=== PATIENT | male | born 1955 | race Caucasian/White ===

== ENCOUNTER 2024-03-17 06:15 | Inpatient (IN) | payer BC, SELFPAY ==
[2024-03-17] VITALS (16 sets, daily range): BP systolic 151–189; BP diastolic 89–118; PULSE 69–104; RESP 15–29; TEMP 36.4–36.6; O2SAT 4–97; BMI 40.6
--- NOTE | 2024-03-17 06:16 | EKG_ITS ---
[facility] Test Date: 2024-03-17 Pat Name: MARIAM ANTHONY Department: Room: - Gender: Male Vein Pumper: : 1955 Requested By: ED Temporary Provider Order Number: [id number] Reading MD: ED Temporary Provider Measurements Intervals [place] Rate: 79 P: NC: QRS: 4 QRSD: 117 T: 85 QT: 423 QTc: 486 Interpretive Statements ATRIAL FIBRILLATION MODERATE INTRAVENTRICULAR CONDUCTION DELAY [110+ ms QRS DURATION] NONSPECIFIC ST & T-WAVE ABNORMALITY ABNORMAL RHYTHM ECG No previous ECG available for comparison /store/S0/[id number].pdf
--- NOTE | 2024-03-17 06:29 | XR_ITS ---
Examination: PA lateral chest 2 views Technique: Upright PA lateral chest 2 views Exam date and time: March 17, 2024 at 0637 hrs. Comparison December 01, 2017 Indications: Chest pain today with hypoxia low O2 levels Findings: Mild to moderate CHF Moderate enlargement cardiac contour Prominent vascular congestion including central vascular engorgement Perihilar basilar edema Moderate osteopenia Impression: Mild to moderate CHF
--- NOTE | 2024-03-17 06:49 | PD.EDSOB ---
ED SOB =RME/HPI General Chief Complaint: Shortness of Breath/Dyspnea Stated Complaint: SHORTNESS OF BREATH Time Seen by Provider: 03/17/24 06:43 Arrival date/time: 03/17/24 06:15 RME / HPI RME / HPI Narrative: This section includes all my notes and documentations, including HPI, PE, MDM, Procedure Notes, and PLAN. Freddy Sol MD HPI: 68 year old male with history of hypertension, atrial fibrillation on Pradaxa presents to the ED for complaint of shortness of breath today. Reports he has been short of breath intermittently for ~ 1 year. However, noted shortness of breath worsening in the last few months. Aggravated with exertion and lying flat. This morning reports patient was unable to catch his breath and oxygen was at 79% via pulse oximeter, prompting ED visit. Patient denies fevers, chills, sweats, chest pain, cough, congestion, leg swelling, abdominal pain, n/v/d, or urinary symptoms. Denies any known history of COPD or asthma. No other complaints. ROS: Respiratory: negative except as documented in HPI. Gastrointestinal: negative except as documented in HPI. Skin: negative except as documented in HPI. Neurological: negative except as documented in HPI. Physical Exam: General: Alert and oriented. No acute distress when remaining still. Eyes: Conjunctivae and lids clear. ENT: No nasal congestion. Neck: Supple. No JVD. Heart: RRR. Lungs: No respiratory distress. Moderately diminished breath sounds bilaterally with wheezing and rales. Abdomen: Soft and nontender. Legs: No clubbing, cyanosis, edema. Skin: Warm and dry. Neuro: Alert and oriented X 3. I reviewed all diagnostic test results. My interpretation of the EKG is sinus rhythm with nonspecific ST-T changes. My interpretation of the chest x-ray is increased vascular congestion. My review of the chest CT report is CHF. Blood tests and urine tests remarkable for elevated BNP. ABG showed pH 7.41, pCO2 49, pHCO3 31. At this point, diagnoses include acute respiratory failure with hypoxia and new onset CHF. Treatment here included Solu-Medrol and neb treatment and Lasix and topical NTG and morphine. No significant improvement noted subjectively and objectively. I discussed the case with our hospitalist. About the presentation and exam and diagnostics and treatments here. And need of further care in the hospital. Will accept the patient. Related Data Home Medications ?Medication ?Instructions ?Recorded ?Confirmed amlodipine 10 mg tablet 10 mg PO DAILY 11/27/17 03/17/24 clonidine HCl 0.1 mg tablet 0.1 mg PO TID 11/27/17 03/17/24 dabigatran etexilate 150 mg 150 mg PO BID 11/27/17 03/17/24 capsule (Pradaxa) hydrochlorothiazide 12.5 mg tablet 12.5 mg PO QAM 11/27/17 03/17/24 meloxicam 15 mg tablet 15 mg PO DAILY 11/27/17 03/17/24 metoprolol succinate 100 mg 100 mg PO DAILY 11/27/17 03/17/24 tablet,extended release 24 hr pantoprazole 40 mg tablet,delayed 40 mg PO DAILY 11/27/17 03/17/24 release potassium chloride 10 mEq 20 meq PO DAILY UD 11/27/17 03/17/24 tablet,extended release finasteride 5 mg tablet 1 tab PO QDAY 10/22/21 03/17/24 tamsulosin 0.4 mg capsule 1 cap PO DAILY 10/22/21 03/17/24 quinapril 40 mg tablet 40 mg PO DAILY 03/17/24 03/17/24 Allergies Allergy/AdvReac Type Severity Reaction Status Date / Time No Known Allergies Allergy Verified 03/17/24 06:17 Review of Systems Review of Systems Systems Reviewed: All systems reviewed, normal except as documented Past Medical History Past Medical History CARDIAC: Positive Cardiac Disorders (PT STATES, IRREGULAR HEART BEAT ), Atrial Fibrillation and Hypertension GASTROINTESTINAL: Positive Obesity GENITOURINARY: Positive Genitourinary Disorders (Patient states he has a UTI in the past. No history of kidney stones. No history of dialysis. 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 Quality Measures none Orders Category Date Time Status Bedside COVID-19 Antigen Test NOW Care 03/17/24 06:52 Active Bedside Influenza A&B Antigen Test NOW Care 03/17/24 06:52 Completed COVID-19 Screening Questionnaire NOW Care 03/17/24 09:[address] Screening NOW Care 03/17/24 06:53 Active Leveler NOW Care 03/17/24 06:29 Active Decision to Admit X1 Care 03/17/24 09:14 Completed EKG (ED ONLY) *Do not use* NOW Care 03/17/24 06:16 Completed Insert NG / OG tube NOW Care 03/17/24 06:[address] angio chest Stat Exams 03/17/24 06:53 Completed EKG (ED Only) Stat Exams 03/17/24 06:16 Draft XR chest 2V Stat Exams 03/17/24 06:29 Completed ABG [Arterial Blood Gas] Stat Lab 03/17/24 07:42 Completed B-Type Natriuretic Peptide Stat Lab 03/17/24 07:06 Completed CBC Stat Lab 03/17/24 07:06 Completed Comprehensive Metabolic Panel Stat Lab 03/17/24 07:06 Completed D-Dimer Stat Lab 03/17/24 07:06 Completed Magnesium Stat Lab 03/17/24 07:06 Completed Partial Thromboplastin Time Stat Lab 03/17/24 07:06 Completed Prothrombin Time with INR Stat Lab 03/17/24 07:06 Completed Troponin I Stat Lab 03/17/24 07:06 Completed Albuterol/Ipratr Rt [place] [Duoneb Rt [place]] Med 03/17/24 06:50 Discontinued 3 ml INH X1 ONE Furosemide Inj [Lasix Inj] Med 03/17/24 07:20 Discontinued 20 mg IVP X1 ONE Magnesium Sulfate 2 GM Ivpb [Magnesium Sulfate Ivpb] Med 03/17/24 07:54 Discontinued 2 gm in 50 ml IV X1 MethylPREDNISolone.* [SoluMEDROL Inj] Med 03/17/24 06:50 Discontinued 125 mg IVP X1 ONE Morphine Inj Med 03/17/24 07:20 Discontinued 2 mg IVP X1 ONE Nitroglycerin Oint 2% [Nitro-paste Oint 2%] Med 03/17/24 07:20 Discontinued 1 inch TOP X1 ONE Reevaluation(s) Reevaluation #1: We reviewed all the results, analysis, and treatment plans. Patient is amenable to admission. Time: 09:14 Vital Signs Vital signs: Vital Signs Temperature 97.7 F 03/17/24 06:23 Pulse Rate 78 03/17/24 06:23 Respiratory Rate 19 03/17/24 06:23 Blood Pressure 176/99 H 03/17/24 06:23 Pulse Oximetry (%) 89 L 03/17/24 06:23 Oxygen Delivery Method Room Air 03/17/24 06:23 Pulse ox is 89% on room air which is hypoxic. Shortness of Breath / Dyspnea MDM Narrative MDM Narrative:: Connie Botello am scribing for and in the presence of Dr. Sol. Patient data External records reviewed:: [facility] previous records (I reviewed admission from 11/27/2017 through 12/02/2017 ) Clinical information provided by:: patient and spouse (, adds to hpi) Social determinants that could affect healthcare access:: none Patient has the following chronic illnesses:: Hypertension, atrial fibrillation How is presenting disease/condition affected by chronic disease/condition?: exacerbated by Evaluation data The following diagnostics were reviewed and interpreted by me:: lab results, radiology exam(s) and EKG tracing(s) (My interpretation of the EKG is: Atrial fibrillation (79 bpm) with nonspecific ST-T changes. Freddy Sol MD) Lab and/or radiology exams considered but not ordered:: None Interpretation Summary: Ordering Physician: Cheyenne LUJAN)Billy NP Date of Service: 03/17/24 Procedure(s): XR chest 2V Accession Number(s): [id number] cc: Cheyenne LUJAN),Billy URIBE; Rashad Marroquin MD~ Examination: PA lateral chest 2 views Technique: Upright PA lateral chest 2 views Exam date and time: March 17, 2024 at 0637 hrs. Comparison December 01, 2017 Indications: Chest pain today with hypoxia low O2 levels Findings: Mild to moderate CHF Moderate enlargement cardiac contour Prominent vascular congestion including central vascular engorgement Perihilar basilar edema Moderate osteopenia Impression: Mild to moderate CHF Dictated By: Rashad Marroquin MD Signed By: <Electronically signed by Rashad Marroquin MD in OV> 03/17/24 0647 Ordering Physician: Freddy Sol MD Date of Service: 03/17/24 Procedure(s): CT angio chest Accession Number(s): [id number] cc: JEANNETTE BRADY; Freddy Sol MD; Rashad Marroquin MD~ Examination: CTA chest with intravenous contrast 2-D reconstructions 3-D reconstructions, vascular Date and time of exam: March 17, 2024 0813 hours INDICATIONS: Onset shortness of breath chest pain hypoxia today CTDI: vol (mGy) 48.5 DLP: (mGycm) 630 Technique: Multiple axial sections of the thorax have been obtained. 3 mm slice thickness, from below the hemidiaphragms to above the apices of the lungs. Mediastinal and lung density settings have been obtained. 2-D sagittal and coronal reconstructions. 3-D angiographic renderings, 3-D volume renderings, 3D post processing, vascular maximum intensity projections obtained. Contrast administered is 100 cc Isovue-370 intravenous. Low dose protocols were performed. One or more of the following dose reduction techniques were used; automated exposure control, adjustment of the mA and/or KV according to patient size, use of iterative reconstruction technique. Findings: Numerous small high periaortic tracheobronchial and aortopulmonary window lymph nodes Thoracic aorta is not opacified No pulmonary artery emboli are visualized Moderate enlargement cardiac contour Prominent vascular congestion Perihilar and basilar septal edema with small bilateral pleural effusions Small anterior right lobe liver cyst, 15 mm IMPRESSION: Negative for pulmonary artery emboli Mild CHF Dictated By: Rashad Marroquin MD Signed By: <Electronically signed by Rashad Marroquin MD in OV> 03/17/24 0858 Medications / Prescriptions Medications or Prescriptions considered but not ordered:: None Medication administrations:: Medication Administration History Acetaminophen (Acetaminophen 325 Mg Tablet) 650 mg PO Q6H PRN PRN Reason: Fever >101.5 or pain 1-3 Stop: 04/16/24 11:17 Albuterol/Ipratropium (Albuterol/Ipratropium (Duoneb) Rt [place] 3 Ml Nebu) 3 ml INH Q6HRRT PRN PRN Reason: shortness of breath Stop: 04/16/24 12:59 Last Admin: 03/17/24 13:09 Dose: 3 ml Documented By: HIRAM Apixaban (Apixaban 2.5 Mg Tablet) 5 mg PO BID [facility] Stop: 04/17/24 08:59 Last Admin: 03/18/24 09:29 Dose: 5 mg Documented By: ALLEGRA Finasteride (Finasteride 5 Mg Tablet) 5 mg PO QDAY [facility] Stop: 04/17/24 08:59 Last Admin: 03/18/24 09:29 Dose: 5 mg Documented By: ALLEGRA Furosemide (Furosemide Inj 10 Mg/Ml 4ml Vial) 40 mg IVP BIDD [facility] Stop: 04/16/24 17:59 Last Admin: 03/18/24 05:16 Dose: 40 mg Documented By: Admin: 03/17/24 17:53 Dose: 40 mg Documented By: CARROL Hydralazine HCl (Hydralazine Hcl 10 Mg Tablet) 10 mg PO Q6HR PRN PRN Reason: SBP>160 Stop: 04/17/24 16:55 Magnesium Hydroxide (Milk Of Magnesia Susp 30 Ml Udc) 30 ml PO QDAY PRN; Protocol PRN Reason: CONSTIPATION Stop: 04/16/24 11:17 Metoprolol Succinate (Metoprolol Succinate Xl 25 Mg Tabcr) 100 mg PO BID [facility] Stop: 04/17/24 20:59 Ondansetron HCl (Ondansetron Inj 2 Mg/Ml Inj 2 Ml) 4 mg IV Q6H PRN; Protocol PRN Reason: NAUSEA OR VOMITING Stop: 04/16/24 11:17 Oxycodone/Acetaminophen (Oxycodone/Apap 5/325 Tablet) 1 tab PO Q6H PRN PRN Reason: PAIN SCALE 4-6 (Moderate Stop: 03/22/24 11:17 Pantoprazole Sodium (Pantoprazole Inj 40 Mg Vial) 40 mg IVP QDAY [facility] Stop: 04/17/24 08:59 Last Admin: 03/18/24 09:29 Dose: 40 mg Documented By: ALLEGRA Tamsulosin HCl (Tamsulosin Hcl 0.4 Mg Capsule) 0.4 mg PO QDAY [facility] Stop: 04/17/24 08:59 Last Admin: 03/18/24 09:29 Dose: 0.4 mg Documented By: ALLEGRA Valsartan (Valsartan 80 Mg Tablet) 320 mg PO QDAY [facility] Stop: 04/17/24 08:59 Last Admin: 03/18/24 09:27 Dose: 320 mg Documented By: GE Discontinued Medications Albuterol/Ipratropium (Albuterol/Ipratropium (Duoneb) Rt [place] 3 Ml Nebu) 3 ml INH X1 ONE Stop: 03/17/24 06:51 Last Admin: 03/17/24 07:31 Dose: 3 ml Documented By: HIRAM Furosemide (Furosemide Inj 10 Mg/Ml 4ml Vial) 20 mg IVP X1 ONE Stop: 03/17/24 07:21 Last Admin: 03/17/24 07:33 Dose: 20 mg Documented By: AM Magnesium Sulfate (Magnesium Sulfate Ivpb) 2 gm in 50 mls @ 25 mls/hr IV X1 ONE Stop: 03/17/24 09:53 Last Infusion: 03/17/24 20:44 Dose: Infused Documented By: Admin: 03/17/24 08:11 Dose: 25 mls/hr Documented By: AM Magnesium Sulfate (Magnesium Sulfate Ivpb) 4 gm in 50 mls @ 12.5 mls/hr IV X1 ONE Stop: 03/17/24 15:27 Last Infusion: 03/17/24 20:45 Dose: Infused Documented By: Admin: 03/17/24 13:32 Dose: 12.5 mls/hr Documented By: AM Methylprednisolone Sodium Succinate (Methylprednisolone Sod Succ 62.5 Mg/Ml 2ml Vial) 125 mg IVP X1 ONE Stop: 03/17/24 06:51 Last Admin: 03/17/24 07:20 Dose: 125 mg Documented By: AM Metoprolol Succinate (Metoprolol Succinate Xl 25 Mg Tabcr) 100 mg PO QDAY JIM Stop: 04/17/24 08:59 Last Admin: 03/18/24 09:28 Dose: 100 mg Documented By: ALLEGRA Morphine Sulfate (Morphine Sulf Inj 10 Mg/Ml Vial) 2 mg IVP X1 ONE Stop: 03/17/24 07:21 Last Admin: 03/17/24 07:33 Dose: 2 mg Documented By: AM Nitroglycerin (Nitroglycerin Oint 2% 1 Inch Packet) 1 inch TOP X1 ONE Stop: 03/17/24 07:21 Last Admin: 03/17/24 07:33 Dose: 1 inch Documented By: AM Home Medication- Please Speak With Patient Caregiver To Have Rx Brought To [facility] 150 mg PO BID JIM Stop: 04/16/24 20:59 Last Admin: 03/17/24 20:32 Dose: Not Given Documented By: SA Non-Admin Reason: Medication Not Available Potassium Chloride (Potassium Chloride 20 Meq Tabcr) 40 meq PO X1 ONE Stop: 03/17/24 11:28 Last Admin: 03/17/24 11:55 Dose: 40 meq Documented By: AM Potassium Chloride (Potassium Chloride 20 Meq Tabcr) 40 meq PO X1 ONE Stop: 03/18/24 07:58 Last Admin: 03/18/24 09:26 Dose: 40 meq Documented By: GE Valsartan (Valsartan 80 Mg Tablet) 320 mg PO X1 ONE Stop: 03/17/24 16:47 Last Admin: 03/17/24 18:30 Dose: 320 mg Documented By: AM See above Consultations Consultation(s) initiated? (list below): Yes Consultation #1 (Physician, Specialty, Details): I spoke with resident Dr. Nayak working with Dr. Arevalo. Discussed patients PMHx, HPI, ED course, exam findings, labs, and radiology results. The hospitalist agree to accept the patient for admission. Time: 09:13 Diagnosis Shortness of Breath Differential Diagnosis: acute exacerbation of chronic obstructive airways disease, congestive heart failure, community acquired pneumonia and pulmonary embolism Most likely diagnosis given after review of the tests above:: New onset CHF Admission Indicated Admission indicated?: indicated Admission Request Was there a request for admission?: Yes Admission Attestation Admission request attestation: Discussed case with [] from Hospitalist service regarding admission. Discussed patients ED course, exam findings, labs, and radiology results. The Hospitalist [agrees,declines] to accept the patient for admission. Disposition Plan Disposition Plan: Admit Discharge Plan Plan Patient Disposition: Admit Acute Care w/in Hospital Problem List Clinical Impression: Acute respiratory failure with hypoxia, New onset of congestive heart failure
--- NOTE | 2024-03-17 06:53 | XR_ITS ---
Examination: CTA chest with intravenous contrast 2-D reconstructions 3-D reconstructions, vascular Date and time of exam: March 17, 2024 0813 hours INDICATIONS: Onset shortness of breath chest pain hypoxia today CTDI: vol (mGy) 48.5 DLP: (mGycm) 630 Technique: Multiple axial sections of the thorax have been obtained. 3 mm slice thickness, from below the hemidiaphragms to above the apices of the lungs. Mediastinal and lung density settings have been obtained. 2-D sagittal and coronal reconstructions. 3-D angiographic renderings, 3-D volume renderings, 3D post processing, vascular maximum intensity projections obtained. Contrast administered is 100 cc Isovue-370 intravenous. Low dose protocols were performed. One or more of the following dose reduction techniques were used; automated exposure control, adjustment of the mA and/or KV according to patient size, use of iterative reconstruction technique. Findings: Numerous small high periaortic tracheobronchial and aortopulmonary window lymph nodes Thoracic aorta is not opacified No pulmonary artery emboli are visualized Moderate enlargement cardiac contour Prominent vascular congestion Perihilar and basilar septal edema with small bilateral pleural effusions Small anterior right lobe liver cyst, 15 mm IMPRESSION: Negative for pulmonary artery emboli Mild CHF
[2024-03-17] MEDS: MethylPREDNISolone SOD SUCC 62.5 MG/ML 2ML VIAL 125 MG IVP (07:20)
[2024-03-17 07:21] LABS: Basophils # (Auto) 0.1 Thou/mm3 (0.0-0.2); Basophils % (Auto) 1 % (0-2.5); Eosinophils # (Auto) 1.2 Thou/mm3 (0.0-0.5); Eosinophils % (Auto) 11 % (0-10); Hematocrit 36.3 % (41.0-53.0); Hemoglobin 11.9 g/dL (13.5-16.0); Immature Granulocytes % (Auto) 0 % (0-0); Immature Granulocytes Auto 0.03 Thou/mm3 (0.00-0.00); Lymphocytes # (Auto) 1.4 Thou/mm3 (1.0-4.8); Lymphocytes % (Auto) 12 % (10-50); Mean Corpuscular HGB Conc 32.8 g/dl (31.0-37.0); Mean Corpuscular Hemoglobin 26.7 pg (25.0-35.0); Mean Corpuscular Volume 81 fL (80-100); Monocytes # (Auto) 1.1 Thou/mm3 (0.0-0.8); Monocytes % (Auto) 10 % (0-12); Neutrophils # (Auto) 7.5 Thou/mm3 (1.8-7.7); Neutrophils % (Auto) 66 % (37-80); Nucleated Red Blood Cell % 0 /100 WBC (0); Platelet Count 211 Thou/mm3 (140-440); RDW Standard Deviation 45.9 fL (35.1-43.9); Red Blood Count 4.46 Miln/mm3 (4.50-5.90); White Blood Count 11.4 Thou/mm3 (3.8-10.6)
[2024-03-17] MEDS: ALBUTEROL/IPRATROPIUM (Duoneb) RT SOL 3 ML NEBU INH ×2 (07:31→13:09)
[2024-03-17] MEDS: NITROGLYCERIN OINT 2% 1 INCH PACKET TOP (07:33)
[2024-03-17] MEDS: MORPHINE SULF INJ 10 MG/ML VIAL 2 MG IVP (07:33)
[2024-03-17] MEDS: FUROSEMIDE INJ 10 MG/ML 4ML VIAL 20 MG IVP (07:33)
[2024-03-17 07:34] LABS: INR 1.3 (0.9-1.3); Partial Thromboplastin Time 40.2 Seconds (22.0-36.0); Prothrombin Time 13.6 Seconds (9.0-12.2)
[2024-03-17 07:37] LABS: B-Type Natriuretic Peptide 184 pg/mL (0-100)
[2024-03-17 07:38] LABS: Alanine Aminotransferase 14 U/L (10-49); Albumin, Serum 4.1 gm/dL (3.4-4.8); Albumin/Globulin Ratio 1.7 (1.2-2.2); Alkaline Phosphatase 78 U/L (46-116); Anion Gap 3 (7-16); Aspartate Amino Transferase 14 U/L (0-34); BUN/Creatinine Ratio 15 Ratio (12-20); Bilirubin,Total 2.3 mg/dL (0.3-1.2); Blood Urea Nitrogen 12 mg/dL (9-23); Calcium 9.3 mg/dL (8.3-10.6); Calcium (Corrected) 9.3 mg/dL (8.5-10.1); Carbon Dioxide 30.9 mMol/L (20.0-31.0); Chloride 102 mMol/L (98-107); Creatinine (Component) 0.8 mg/dL (0.6-1.3); Globulin 2.4 gm/dL (2.3-3.5); Glucose 130 mg/dL (74-106); Magnesium 1.5 mg/dL (1.6-2.6); Osmolality,Calculated 273 (275-295); Potassium 3.9 mMol/L (3.4-5.1); Sodium 136 mMol/L (136-145); Total Protein 6.5 gm/dL (5.7-8.2); Troponin I < 0.020 ng/mL (0.0-0.045); eGFR > 60 See Note
[2024-03-17 07:45] LABS: Base Excess 6 (-3-3); HCO3 31 mEq/L (20-26); Inspired O2, VO2 Liters 1 L/min; O2 Saturation 95 % (91-98); PCO2 49 mmHg (32.0-48.0); PO2 70 mmHg (83-108); pH, Arterial 7.41 (7.35-7.45)
[2024-03-17 07:51] LABS: Allen Test Not Performed; Puncture Site Right Radial
[2024-03-17 07:54] LABS: D-Dimer < 250 ng/mL (<600)
[2024-03-17] MEDS: Magnesium Sulfate 2 GM Ivpb 2 GM/50 ML BAG IV (08:11)
--- NOTE | 2024-03-17 10:57 | PC.CC ---
Patient is a 68 year-old, male who presents to the hospital for SOB. Barbara HENSON met with the patient face to face. ASW introduced self, role, and reason for visit. Patient presented alert and oriented to self, location, and situation. At bedside was patients Twila Ruth who patient provided consent to remain in the room with the patient. Patient was pleasant and engaged in assessment. Patient confirmed information on the demographics and lives at home with his . Prior to being hospitalized patient was able to complete own ADLs and Ambulate Independently. Patient reports the nasal oxygen is new for him and he has never used oxygen. Patient's primary care doctor is Dr. Cifuentes. Patient uses [facility] [address] in [place], [place]. Upon discharge patient plans on returning home. consulting services project manager to follow-up with any discharge needs.
--- NOTE | 2024-03-17 11:23 | ECHO_ITS ---
Transthoracic Echo Report Ht (in): 72 Wt (lb): 300 Exam Location: Portable Status: Emergency Bin Piler: Padmini Schroeder Indications: Procedure Performed: BP: 159 / 89 HR: 98 Rhythm: Atrial fibrillation Technical Quality: Technically difficult study MEASUREMENTS (Male / Female) Normal Values 2D ECHO LV Diastolic Diameter PLAX 5.9 cm 4.2 - 5.9 / 3.9 - 5.3 cm LV Systolic Diameter PLAX 4.1 cm IVS Diastolic Thickness 1.2 cm 0.6 - 1.0 / 0.6 - 0.9 cm LVPW Diastolic Thickness 1.2 cm 0.6 - 1.0 / 0.6 - 0.9 cm LV Relative Wall Thickness 0.4 LVOT Diameter 2.1 cm LA Volume Index 90.7 cm?/m? 16 - 28 cm?/m? Ascending Aorta Diameter 3.6 cm M-MODE Aortic Root Diameter MM 3.4 cm LA Systolic Diameter MM 5.7 cm LA Ao Ratio MM 1.7 AV Cusp Separation MM 2.4 cm DOPPLER LVOT Peak Velocity 83.5 cm/s LVOT Peak Gradient 2.8 mmHg LVOT Velocity Time Integral 16.6 cm LVOT Cardiac Index 2090.8 cm?/min?m? MV Peak Velocity 156.0 cm/s MV Peak Gradient 9.7 mmHg MV Mean Velocity 80.7 cm/s MV Mean Gradient 4.0 mmHg MV Area PHT 4.4 cm? Mitral E Point Velocity 93.1 cm/s Mitral A Point Velocity 1.9 cm/s Mitral E to A Ratio 48.0 LV E' Lateral Velocity 13.2 cm/s Mitral E to LV E' Lateral Ratio 7.1 LV E' Septal Velocity 11.0 cm/s Mitral E to LV E' Septal Ratio 8.5 FINDINGS Left Ventricle Normal left ventricular size, systolic function with no obvious regional wall motion abnormalities. Mild LVH. The ejection fraction is visually estimated at 55-60%. Right Ventricle The right ventricle is mildly dilated. Normal systolic function. Left Atrium The left atrium is severely dilated. Right Atrium The right atrium is severely dilated. Atrial Septum The interatrial septum appears normal with no evidence of a shunt. Aorta The aorta is normal by two-dimensional, color flow and Doppler interrogation. Mitral Valve The mitral valve is normal by two-dimensional, color flow and Doppler interrogation. There is mild m itral valve regurgitation. Aortic Valve The aortic valve is trileaflet and normal by two-dimensional, color flow and Doppler interrogation. There is no significant aortic valve regurgitation. Tricuspid Valve The tricuspid valve is normal by two-dimensional, color flow and Doppler interrogation. There is tra ce tricuspid valve regurgitation. Pulmonic Valve There is no significant pulmonic valve regurgitation. Vessels The pulmonary artery appears normal. The inferior vena cava pulmonary and hepatic veins appear dilat ed. Pericardium The pericardium is normal by two-dimensional imaging. There is no significant pericardial effusion. CONCLUSIONS Indication: CHF Normal LV size and function. Mild LVH. Cannot determine diatolic function due to AFib. Estimated EF 55- 60% Mild RV dilation. Normal RV function. Severe biatrial dilation. IVC dilated. Mild MR. Trace TR. John Bella (Electronically Signed) Final Date: 18 March 2024 12:58
[2024-03-17] MEDS: POTASSIUM CHLORIDE 20 mEq TABCR 40 MEQ PO (11:55)
[2024-03-17] MEDS: Magnesium Sulfate 4 GM Ivpb 4 GM/50 ML BAG IV (13:32)
--- NOTE | 2024-03-17 15:40 | ESCONSULT_ITS ---
HPI Data of Consult Patient: new to practice Consult date: 03/17/24 Requesting Physician: Nancy Arevalo DO Admitting Provider: Nancy Arevalo DO Attending Provider: Nancy Arevalo DO Primary Care Provider: Antwan Cifuentes MD Consult Narrative Reason for consult: SOB, Afib with RVR History of present illness: HISTORY OF PRESENT ILLNESS : Patient is a 68-year-old male with a past medical history significant for essential hypertension, longstanding A-fib anticoagulated on Pradaxa and rate controlled on metoprolol XL, vertigo, BPH, history of right hip and left knee replacement at [facility] and lumbosacral laminectomy. Follows up with [facility] Dr. Murphy in [place] and nursing program chair, Dr. Cifuentes. Presented to the ED today with a chief complaint of shortness of breath. Patient states that for the past year he has constant shortness of breath but has been delaying coming to the hospital because it was very [place] farm. 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 Patient states that his SOB is constant and if he walks for less than half a block he has to stop to catch his breath. Patient's also endorses lower extremity swelling which has gotten worse over the past couple weeks.. He also has a 2 pillow orthopnea and PND. Patient denies any chest pain/pressure and palpitations. Also denies any presyncope/syncope, leg cramps and claudication. Patient also endorses nocturia having to wake up 5 times at night to urinate. He also gets lightheaded upon waking up every morning and this is exacerbated by bending over or getting up quickly. Patient follows up with [facility] Dr. Murphy in [place] and has regular visits every 6 months with stress test every 2 years. His last heart catheterization was approximately 7 years ago which patient states was normal. Patient was offered the option of KIERSTEN with electrical cardioversion for his longstanding A-fib. Both he and his were extensively counseled and advised by Dr. Bella, however they decline at this time. Patient also endorses that his hypertension has been uncontrolled for many years and he regularly checks his blood pressure at home with his SBP is being in the 150s?160s usually. ED course: In the ED, patient was noted to be hypoxic still, saturating 89% on room air, hypertensive. EKG showed atrial fibrillation with a rate of 79. Chest x-ray showed some vascular congestion consistent with mild to moderate CHF and CTA was negative for pulmonary embolism. The patient was placed on 2 L of oxygen and saturation improved Labs showed WBC 11.4 Hgb 11.9 PLT 211. ABG showed pCO2 49. NA 130 6K3.9 CL 107 bicarb 30.9 BUN 12 CR 0.8 glucose 130 mag 1.5 and T. bili 2.3. Last transthoracic echocardiogram completed on 12/01/[address] Goss findings include: A complete two-dimensional, color flow and Doppler transthoracic echocardiogram is performed. Dilated cardiomyopathy ejection fraction is 45- 50%. Mild mitral and tricuspid regurgitation Moderate LVH. The patient has been admitted for management of acute hypoxic respiratory failure secondary to CHF exacerbation. Cardiology was consulted. HOME MEDICATIONS: ? HCTZ 12.5 mg p.o. daily ? Meloxicam 15 Mg p.o. daily ? Quinapril 40 Mg p.o. daily ? Amlodipine 10 Mg p.o. daily ? KCl 10 Mg p.o. twice daily ? Metoprolol XL 100 Mg p.o. daily ? Clonidine 0.4 Mg p.o. daily ? Pantoprazole 40 Mg p.o. daily ? Pradaxa 150 Mg p.o. twice daily ? Tamsulosin 0.4 mg p.o. every morning ? Finasteride 5 Mg p.o. daily Is a 17-year-old male with a past medical history of longstanding atrial fibrillation cc:: cc: Nancy Arevalo, Past Medical History Past Medical History Comments PMH COMMENT: Past medical history: ? Essential hypertension ? Longstanding A-fib ? Vertigo ? BPH ? Morbid obesity class III Past surgical history: - Right Hip replacement and Left knee replacement both at [facility] - Lumbosacral Laminectomy Allergies: NKFDA Social history: Occupational History: Works as a sanchez on [employer] Marital Status: with 3 kids. Lives alone [place] Tobacco use: Denies ETHO use: 1 glass of wine per day Illicit drug use: Denies Social History Note: lives with Family History: Grandfather RI in his 50s Exam Vital Signs Temp Pulse Resp BP Pulse Ox O2 Del Method O2 Flow Rate 97.7 F 98 16 151/89 H 96 Nasal Cannula 4 03/17/24 11:37 03/17/24 13:10 03/17/24 13:10 03/17/24 11:37 03/17/24 13:10 03/17/24 11:37 03/17/24 13:10 Narrative Exam Constitutional Alert, oriented x 3 and comfortable. ELderly Obese male HEENT Vision grossly intact. Patent nares. Trachea midline Respiratory Chest normal on inspection and clear auscultation bilaterally Cardiovascular S1 and S2 audible,irregularly, irregular rate. No murmurs carotid bruit. JVD not assessed Abdominal Soft,obese and non tender to palpation in all quadrants. BS + Genitourinary No bladder tenderness, no flank pain. Normal to palpation. No scrotal edema Musculoskeletal Extremities tone within normal limits. 3 + LE edema B/L, 2+ hip edema Neurological CN II - XII grossly intact. Extremity motor and sensation grossly intact. Skin Warm, dry and intact. No apparent lesions. Psychiatric Patient has good affect, is cooperative Results Labs 03/17/24 07:06 03/17/24 07:06 Labs: Short CBC 03/17/24 Range/Units 07:06 WBC 11.4 H (3.8-10.6) Thou/mm3 Hgb 11.9 L (13.5-16.0) g/dL Hct 36.3 L (41.0-53.0) % Plt Count 211 (140-440) Thou/mm3 BMP 03/17/24 07:06 Sodium 136 Potassium 3.9 Chloride 102 Carbon Dioxide 30.9 BUN 12 Creatinine 0.8 Glucose 130 H Calcium 9.3 Cardiac Enzymes 03/17/24 Range/Units 07:06 Troponin I < 0.020 (0.0-0.045) ng/mL Liver Function 03/17/24 Range/Units 07:06 Total Bilirubin 2.3 H (0.3-1.2) mg/dL AST 14 (0-34) U/L ALT 14 (10-49) U/L Alkaline Phosphatase 78 (46-116) U/L Albumin 4.1 (3.4-4.8) gm/dL ABG Interpretation ABG results: 03/17/24 07:42 ABG pH 7.41 ABG pCO2 49 H ABG pO2 70 L ABG HCO3 31 H ABG O2 Saturation 95 ABG Base Excess 6 H Quality Measures Quality Measures none Advance care planning discussed with:: patient Medications Home Medications and Allergies Home Medications ?Medication ?Instructions ?Recorded ?Confirmed ?Type amlodipine 10 mg tablet 10 mg PO DAILY 11/27/17 03/17/24 History clonidine HCl 0.1 mg tablet 0.1 mg PO TID 11/27/17 03/17/24 History dabigatran etexilate 150 mg 150 mg PO BID 11/27/17 03/17/24 History capsule (Pradaxa) hydrochlorothiazide 12.5 mg tablet 12.5 mg PO QAM 11/27/17 03/17/24 History meloxicam 15 mg tablet 15 mg PO DAILY 11/27/17 03/17/24 History metoprolol succinate 100 mg 100 mg PO DAILY 11/27/17 03/17/24 History tablet,extended release 24 hr pantoprazole 40 mg tablet,delayed 40 mg PO DAILY 11/27/17 03/17/24 History release potassium chloride 10 mEq 20 meq PO DAILY UD 11/27/17 03/17/24 History tablet,extended release finasteride 5 mg tablet 1 tab PO QDAY 10/22/21 03/17/24 History tamsulosin 0.4 mg capsule 1 cap PO DAILY 10/22/21 03/17/24 History quinapril 40 mg tablet 40 mg PO DAILY 03/17/24 03/17/24 History Allergies Allergy/AdvReac Type Severity Reaction Status Date / Time No Known Allergies Allergy Verified 03/17/24 06:17 Visit Medications Acetaminophen (Acetaminophen 325 Mg Tablet) 650 mg PO Q6H PRN PRN Reason: Fever >101.5 or pain 1-3 Stop: 04/16/24 11:17 Albuterol/Ipratropium (Albuterol/Ipratropium (Duoneb) Rt [place] 3 Ml Nebu) 3 ml INH Q6HRRT PRN PRN Reason: shortness of breath Stop: 04/16/24 12:59 Last Admin: 03/17/24 13:09 Dose: 3 ml Finasteride (Finasteride 5 Mg Tablet) 5 mg PO QDAY [facility] Stop: 04/17/24 08:59 Furosemide (Furosemide Inj 10 Mg/Ml 4ml Vial) 40 mg IVP BIDD JIM Stop: 04/16/24 17:59 Magnesium Hydroxide (Milk Of Magnesia Susp 30 Ml Udc) 30 ml PO QDAY PRN; Protocol PRN Reason: CONSTIPATION Stop: 04/16/24 11:17 Home Medication- Please Speak With Patient Caregiver To Have Rx Brought To [facility] 150 mg PO BID JIM Stop: 04/16/24 20:59 Ondansetron HCl (Ondansetron Inj 2 Mg/Ml Inj 2 Ml) 4 mg IV Q6H PRN; Protocol PRN Reason: NAUSEA OR VOMITING Stop: 04/16/24 11:17 Oxycodone/Acetaminophen (Oxycodone/Apap 5/325 Tablet) 1 tab PO Q6H PRN PRN Reason: PAIN SCALE 4-6 (Moderate Stop: 03/22/24 11:17 Pantoprazole Sodium (Pantoprazole Inj 40 Mg Vial) 40 mg IVP QDAY [facility] Stop: 04/17/24 08:59 Valsartan (Valsartan 80 Mg Tablet) 320 mg PO QDAY [facility] Stop: 04/17/24 08:59 Discontinued Medications Albuterol/Ipratropium (Albuterol/Ipratropium (Duoneb) Rt [place] 3 Ml Nebu) 3 ml INH X1 ONE Stop: 03/17/24 06:51 Last Admin: 03/17/24 07:31 Dose: 3 ml Furosemide (Furosemide Inj 10 Mg/Ml 4ml Vial) 20 mg IVP X1 ONE Stop: 03/17/24 07:21 Last Admin: 03/17/24 07:33 Dose: 20 mg Magnesium Sulfate (Magnesium Sulfate Ivpb) 2 gm in 50 mls @ 25 mls/hr IV X1 ONE Stop: 03/17/24 09:53 Last Admin: 03/17/24 08:11 Dose: 25 mls/hr Magnesium Sulfate (Magnesium Sulfate Ivpb) 4 gm in 50 mls @ 12.5 mls/hr IV X1 ONE Stop: 03/17/24 15:27 Last Admin: 03/17/24 13:32 Dose: 12.5 mls/hr Methylprednisolone Sodium Succinate (Methylprednisolone Sod Succ 62.5 Mg/Ml 2ml Vial) 125 mg IVP X1 ONE Stop: 03/17/24 06:51 Last Admin: 03/17/24 07:20 Dose: 125 mg Morphine Sulfate (Morphine Sulf Inj 10 Mg/Ml Vial) 2 mg IVP X1 ONE Stop: 03/17/24 07:21 Last Admin: 03/17/24 07:33 Dose: 2 mg Nitroglycerin (Nitroglycerin Oint 2% 1 Inch Packet) 1 inch TOP X1 ONE Stop: 03/17/24 07:21 Last Admin: 03/17/24 07:33 Dose: 1 inch Potassium Chloride (Potassium Chloride 20 Meq Tabcr) 40 meq PO X1 ONE Stop: 03/17/24 11:28 Last Admin: 03/17/24 11:55 Dose: 40 meq Assessment & Plan Plan Patient is a 68-year-old male with a past medical history significant for essential hypertension, longstanding A-fib anticoagulated on Pradaxa and rate controlled on metoprolol XL, vertigo, BPH, history of right hip and left knee replacement at [facility] and lumbosacral laminectomy. Follows up with [facility] Dr. Murphy in [place] and nursing program chair, Dr. Cifuentes. Presented to the ED today with a chief complaint of shortness of breath.The patient has been admitted for management of acute hypoxic respiratory failure secondary to CHF exacerbation. Cardiology was consulted. 1. Acute respiratory failure with hypoxia Secondary to 2. Acute decompensated chronic systolic heart failure exacerbation [EF 45-50%] 3. Dilated cardiomyopathy On admission patient was severely SOB and saturating 89% on room air, subsequently was placed on supplemental O2 via NC and saturations improved to 94%. On exam patient's lungs were clear to auscultation, however had significant lower extremity edema. BNP on admission was 184 less than his previous value of 346 in 2018. Troponin was also negative. EKG showed atrial fibrillation, rate [address] changes or Q waves. Chest x-ray showed bilateral vascular congestion and pulmonary edema bilaterally worse in the right lower lobe. Patient's home diuretic HCTZ 12.5 Mg p.o. daily NYHA Stage C Class IV Plan: ? Strict input output charting ? Fluid restrict 1500 cc/day ? Daily weights ? 2 g sodium restricted diet ? Recommend diuresis with furosemide 40 Mg IV twice daily ? Repeat transthoracic echocardiogram ordered ? Last lipid panel and TSH on file from 2018, recommend to repeat also HbA1c 4. Longstanding A-fib?rate controlled Patient has history of A-fib for many years rate controlled on metoprolol XL 100 mg p.o. daily and anticoagulated on Pradaxa 150 Mg p.o. twice daily. EKG on admission showed atrial fibrillation with a rate of [address] changes or Q waves. [id number]: 3 points; 3.2% stroke risk per year HAS-BLED: 2 points; moderate risk for major bleeding Both patient and his extensively counseled and advised by Dr. Bella about switching from Pradaxa to Eliquis due to lower risk of bleeding. Both patient and agree. Plan: ? Patient currently rate controlled, can resume/increase metoprolol XL later on as patient is currently in acute heart failure exacerbation. ?Recommend anticoagulation with Eliquis 5 Mg p.o. twice daily ? Maintain potassium greater than 4 and magnesium greater than 2 at all times to prevent any further arrhythmias 5. Essential hypertension ?uncontrolled Patient has hypertension for many years and his home medications quinapril 40 Mg p.o. daily, amlodipine 10 Mg p.o. daily, clonidine 0.4 Mg p.o. daily. SBP's at home range from 150s?160s Plan: ? Ideally patient should be on ROCKY/ARB or Entresto along with beta-tushar and spironolactone as part of GDMT. ?Recommend to start on ARB for now 6. Normocytic anemia On admission patient's Hb 11.9, uncertain of baseline as last documented labs from 2018. DDx: Anemia of chronic disease, iron deficiency, poor nutrition, gastric ulcer Recommend iron panel and complete anemia workup 7. BPH Patient's home medication tamsulosin 0.4 Mg p.o. daily and finasteride 5 Mg p.o. daily. Continue management as per primary team 8. Likely CLEM 9. Morbid obesity class III Patient's BMI 40.7 kg/m2 and patient's also reports that he snores. Recommend sleep study as outpatient to further evaluate Continue rest of management as per primary team. We are grateful to be able to participate in Mr. Ruth's care. Thank you for the consult Plan of care discussed with attending Reinforcing Steel Machine Operator, Dr Shayne Jaquez MD PGY 1 Attending Provider Attestation/Addendum I have personally seen and examined the patient separately on the above date of service and discussed the plan of care with the resident. I reviewed the resident Dr. Jaquez consultation progress note and agree with the resident findings and plan in the note above and have also edited the documentation to reflect my findings and plan. 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 Patient has been having worsening shortness of breath over the last couple of months which has been slowly worsening to the level where he is not able to lie down flat and uses couple of pillows for now. Patient, does not feel any palpitations and even when he is in atrial fibrillation and he never had any symptoms. Patient apparently has been following with Dr. Lindquist with [facility] in [place] for many years and as regular visits every 6 months and has stress test 2 years ago which was absolutely normal. Last cardiac catheterization 7 years ago which were normal. Patient denies any kind of chest pain or chest pressure at the present point of time. From the shortness of breath, palpitations as well as fatigue and unable to sleep well. In the emergency department patient blood pressure was elevated and at home was in the 1 50-1 60s millimeters mercury. Patient was hypoxic and was 89% on room air and at home was around 79% as per the . EKG showed atrial fibrillation with rate control. Hemoglobin is 11.9, platelets is 211 and WBC is 11.4. INR 1.3. Potassium 3.9, sodium 136 BUN 12 creatinine of 0.8, admission was 1.5, glucose of 130 BNP was elevated at 184 bilirubin is elevated at 1.4. No fever or chills. Chest x-ray showed bilateral vascular congestion with pulmonary edema picture even on the CT. 1. Acute hypoxic respiratory failure in setting of acute on chronic systolic versus diastolic congestive heart failure exacerbation: Recent EF not known for the patient and previously last echocardiogram showed an EF of around 45 to 50% 4 years ago. Will start the patient on IV Lasix 40 mg twice daily for now. Strict input output, daily weights and 2 g oriented. Neck Check echocardiogram to rule out regional wall motion abnormalities, LV function and RV function as well as diastolic function. Patient could have tachycardia induced cardiomyopathy as his heart rate appears to be uncontrolled as heart rate at rest is around 70 to 100 bpm point upon standing or with ambulation patient's heart rate is greater than 110 bpm. Return metoprolol XL 100 mg once daily which can be continued for now and can continue to uptitrate it based on the heart rate as well as blood pressure. Patient blood pressure is elevated on arrival if patient is systolic heart failure. Denies Entresto otherwise we will continue losartan for the patient and continue to monitor the renal function. Patient atrial fibrillation not well-controlled at the present moment. Patient has never been cardioverted as per the patient and the patient was never admitted for any RVR episodes and has been doing well since initial diagnosis. They did discuss cardioversion previously but never been high rate. Patient unsure if he is in atrial fibrillation during all the time or not. Continue Eliquis 5 mg twice daily for now. Magnesium is 1.5 recommend to give at least 6 A of magnesium sulfate IV and keep potassium greater than 4 and magnesium greater than 2.0 at all times. Management of rest of the medical conditions as per primary team. Thank for the consult and allowing me to participate in the care of the patient. Cardiology will continue to follow. John Bella MD Interventional cardiology
--- NOTE | 2024-03-17 17:05 | ESHP_ITS ---
<Statement entered by Betzy Sorto MD - 03/19/24 07:24> Senior Resident Attestation: I supervised/discussed management plan with resident physician Dr. Torres, and was involved in the care of this patient. I personally saw and examined the patient and discussed the assessment and plan with the entire medicine team, including my attending. I agree with the assessment and plan as documented. Patient's care was discussed with attending physician, Dr. Mickey Sorto MD PGY-3 Documentation for date of: 03/17/24 HPI History of Present Illness History of present illness: The patient is a 68-year-old male with a past medical history of hypertension and A-fib on Pradaxa who presented to the ED on 03/17/2024 with complaints of shortness of breath. Patient reports that he has been having symptoms intermittently for approximately a year but has worsened over the last few months and he is unable to complete his many steps as he is usually able to. He also reports exertional dyspnea and orthopnea. Per patient's who is at bedside, patient was unable to breathe and via pulse oximeter O2 sat was at 79% which brought him to the ER. Patient denied any chest pain, palpitations, fevers or leg swelling in the past and denies any history of COPD or asthma. ED course: In the ED, patient was noted to be hypoxic still, saturating 89% on room air, hypertensive. EKG showed atrial fibrillation with a rate of 79. Chest x-ray showed some vascular congestion consistent with mild to moderate CHF and CT was negative for pulmonary embolism. The patient was placed on 2 L of oxygen and saturation picked up. Labs showed WBC 11.4 Hgb 11.9 PLT 211. ABG showed pCO2 49. NA 130 6K3.9 CL 107 bicarb 30.9 BUN 12 CR 0.8 glucose 130 mag 1.5 and T. bili 2.3. The patient has been admitted for management of acute hypoxic respiratory failure secondary to CHF exacerbation. Review of Systems Review of Systems Narrative Review of Systems: GENERAL: Denies fevers/chills or diaphoresis. HEENT: Denies headache or visual/hearing changes. Denies nasal discharge. NEURO: Denies unusual weakness or difficulty speaking. CARDIO: Denies chest pain or palpitations. PULM: Admits shortness of breath and orthopnea GI: Denies abdominal pain, N/V/C/D/reflux/gas, bright red blood per rectum or melena. Reports having BMs. URO: Denies burning/itching/pain/urinary changes. MSK/EXT/SKIN: Denies joint/skeletal/muscle pain, issues/changes in upper or lower extremities, itchiness, or superficial pain. PSYCH: Cooperative, pleasant mood & affect. Exam Vital Signs Temp Pulse Resp BP Pulse Ox O2 Del Method O2 Flow Rate 97.7 F 89 18 189/102 H 94 L Room Air 4 03/17/24 16:21 03/17/24 16:21 03/17/24 16:21 03/17/24 16:21 03/17/24 16:21 03/17/24 16:21 03/17/24 13:10 Narrative Exam GENERAL: AAOX3 NEURO: MOTOR VEHICLES SUPERVISOR grossly intact, moves extremities x4 HEENT: Moist mucosa. Eyes open, symmetrical, & clear, nasal cannula in-situ CARDIO: No chest pain on palpation. Irregular rhythm, normal rate, no obvious murmurs PULM: No noted coughing/dyspnea. Crackles heard bilaterally GI: Abdomen soft, nondistended, no pain on palpation. 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 SKIN/MSK/EXT: Bilateral pitting edema 1+ Results: Labs 03/18/24 04:20 03/18/24 04:20 Labs: Short CBC 03/17/24 Range/Units 07:06 WBC 11.4 H (3.8-10.6) Thou/mm3 Hgb 11.9 L (13.5-16.0) g/dL Hct 36.3 L (41.0-53.0) % Plt Count 211 (140-440) Thou/mm3 BMP 03/17/24 07:06 Sodium 136 Potassium 3.9 Chloride 102 Carbon Dioxide 30.9 BUN 12 Creatinine 0.8 Glucose 130 H Calcium 9.3 Cardiac Enzymes 03/17/24 Range/Units 07:06 Troponin I < 0.020 (0.0-0.045) ng/mL Liver Function 03/17/24 Range/Units 07:06 Total Bilirubin 2.3 H (0.3-1.2) mg/dL AST 14 (0-34) U/L ALT 14 (10-49) U/L Alkaline Phosphatase 78 (46-116) U/L Albumin 4.1 (3.4-4.8) gm/dL ABG Interpretation ABG results: 03/17/24 07:42 ABG pH 7.41 ABG pCO2 49 H ABG pO2 70 L ABG HCO3 31 H ABG O2 Saturation 95 ABG Base Excess 6 H Quality Measures Quality Measures none Advance care planning discussed with:: patient and spouse Medications Home Medications and Allergies Home Medications ?Medication ?Instructions ?Recorded ?Confirmed ?Type amlodipine 10 mg tablet 10 mg PO DAILY 11/27/17 03/17/24 History clonidine HCl 0.1 mg tablet 0.1 mg PO TID 11/27/17 03/17/24 History dabigatran etexilate 150 mg 150 mg PO BID 11/27/17 03/17/24 History capsule (Pradaxa) hydrochlorothiazide 12.5 mg tablet 12.5 mg PO QAM 11/27/17 03/17/24 History meloxicam 15 mg tablet 15 mg PO DAILY 11/27/17 03/17/24 History metoprolol succinate 100 mg 100 mg PO DAILY 11/27/17 03/17/24 History tablet,extended release 24 hr pantoprazole 40 mg tablet,delayed 40 mg PO DAILY 11/27/17 03/17/24 History release potassium chloride 10 mEq 20 meq PO DAILY UD 11/27/17 03/17/24 History tablet,extended release finasteride 5 mg tablet 1 tab PO QDAY 10/22/21 03/17/24 History tamsulosin 0.4 mg capsule 1 cap PO DAILY 10/22/21 03/17/24 History quinapril 40 mg tablet 40 mg PO DAILY 03/17/24 03/17/24 History Allergies Allergy/AdvReac Type Severity Reaction Status Date / Time No Known Allergies Allergy Verified 03/17/24 06:17 Visit Medications Acetaminophen (Acetaminophen 325 Mg Tablet) 650 mg PO Q6H PRN PRN Reason: Fever >101.5 or pain 1-3 Stop: 04/16/24 11:17 Albuterol/Ipratropium (Albuterol/Ipratropium (Duoneb) Rt [place] 3 Ml Nebu) 3 ml INH Q6HRRT PRN PRN Reason: shortness of breath Stop: 04/16/24 12:59 Last Admin: 03/17/24 13:09 Dose: 3 ml Finasteride (Finasteride 5 Mg Tablet) 5 mg PO QDAY [facility] Stop: 04/17/24 08:59 Furosemide (Furosemide Inj 10 Mg/Ml 4ml Vial) 40 mg IVP BIDD [facility] Stop: 04/16/24 17:59 Magnesium Hydroxide (Milk Of Magnesia Susp 30 Ml Udc) 30 ml PO QDAY PRN; Protocol PRN Reason: CONSTIPATION Stop: 04/16/24 11:17 Home Medication- Please Speak With Patient Caregiver To Have Rx Brought To [facility] 150 mg PO BID [facility] Stop: 04/16/24 20:59 Ondansetron HCl (Ondansetron Inj 2 Mg/Ml Inj 2 Ml) 4 mg IV Q6H PRN; Protocol PRN Reason: NAUSEA OR VOMITING Stop: 04/16/24 11:17 Oxycodone/Acetaminophen (Oxycodone/Apap 5/325 Tablet) 1 tab PO Q6H PRN PRN Reason: PAIN SCALE 4-6 (Moderate Stop: 03/22/24 11:17 Pantoprazole Sodium (Pantoprazole Inj 40 Mg Vial) 40 mg IVP QDAY [facility] Stop: 04/17/24 08:59 Valsartan (Valsartan 80 Mg Tablet) 320 mg PO QDAY [facility] Stop: 04/17/24 08:59 Discontinued Medications Albuterol/Ipratropium (Albuterol/Ipratropium (Duoneb) Rt [place] 3 Ml Nebu) 3 ml INH X1 ONE Stop: 03/17/24 06:51 Last Admin: 03/17/24 07:31 Dose: 3 ml Furosemide (Furosemide Inj 10 Mg/Ml 4ml Vial) 20 mg IVP X1 ONE Stop: 03/17/24 07:21 Last Admin: 03/17/24 07:33 Dose: 20 mg Magnesium Sulfate (Magnesium Sulfate Ivpb) 2 gm in 50 mls @ 25 mls/hr IV X1 ONE Stop: 03/17/24 09:53 Last Admin: 03/17/24 08:11 Dose: 25 mls/hr Magnesium Sulfate (Magnesium Sulfate Ivpb) 4 gm in 50 mls @ 12.5 mls/hr IV X1 ONE Stop: 03/17/24 15:27 Last Admin: 03/17/24 13:32 Dose: 12.5 mls/hr Methylprednisolone Sodium Succinate (Methylprednisolone Sod Succ 62.5 Mg/Ml 2ml Vial) 125 mg IVP X1 ONE Stop: 03/17/24 06:51 Last Admin: 03/17/24 07:20 Dose: 125 mg Morphine Sulfate (Morphine Sulf Inj 10 Mg/Ml Vial) 2 mg IVP X1 ONE Stop: 03/17/24 07:21 Last Admin: 03/17/24 07:33 Dose: 2 mg Nitroglycerin (Nitroglycerin Oint 2% 1 Inch Packet) 1 inch TOP X1 ONE Stop: 03/17/24 07:21 Last Admin: 03/17/24 07:33 Dose: 1 inch Potassium Chloride (Potassium Chloride 20 Meq Tabcr) 40 meq PO X1 ONE Stop: 03/17/24 11:28 Last Admin: 03/17/24 11:55 Dose: 40 meq Valsartan (Valsartan 80 Mg Tablet) 320 mg PO X1 ONE Stop: 03/17/24 16:47 Assessment & Plan Plan Summary: The patient is a 68-year-old male with a past medical history of hypertension and A-fib on Pradaxa presents to the ED on 03/17/2020 for complaints of shortness of breath. The patient was admitted for management of acute hypoxic respiratory failure secondary to CHF exacerbation. #Acute hypoxic respiratory failure #Acute decompensated heart disease The patient presented with several months of dyspnea, as well as exertional dyspnea and orthopnea. He is unable to pinpoint when exactly his symptoms started but noted that he had progressively worsened. At home, possibly associated start to be at 79% which prompted the ER visit. Chest x-ray showed pulmonary vascular congestion with perihilar basilar edema consistent with mild to moderate CHF. Last echocardiogram on file is done in 2018 and showed dilated cardiomyopathy and ejection fraction of 40 to 45%. BNP admission- 184 Plan: -IV Lasix 40 mg twice daily -Fluid restriction -Strict I&O's -Daily weights -Cardiology consulted, appreciate recommendations #History of hypertension The patient is on valsartan 320 mg daily, HCTZ 12.5 mg and amlodipine 10 mg. -Restarted valsartan, will complete med recs. #History of A-fib The patient has a history of A-fib and is on metoprolol 100 mg daily, and is on pradaxa EKG on admission showed the patient to be in A-fib, rate controlled. -CHADVASC: 2 Plan: -Restart home metoprolol once med rec is completed -Cardiology consulted, appreciate recommendations #History of BPH The patient per med rec is on finasteride 5 mg daily -Restart home medication Health maintenance: Dispo: Tele Diet: Cardiac GI: Pantoprazole DVT: Pradaxa Vivar: None Lines: Peripheral Med Rec: Pending, f/u PT: Code: Full Case was discussed with senior resident Dr Sorto PGY-3 and attending physician, Dr Mickey Torres MD PGY-1 Attending Provider Attestation/Addendum I, Nancy Arevalo DO, attest that I was physically present for the wallace portions of the service and evaluated the patient with the resident and I reviewed and discussed the case with the resident and agree with the resident's findings and plans of care as documented above Patient is a 68-year-old male with past medical history of hypertension and A- fib on chronic anticoagulation who presents to the ED with worsening shortness of breath. Patient states that he has noted that he initially had shortness of breath about a year ago that has been progressively worsening. He states that it has worsened in the past few days limiting his daily activities. Patient states that he is only able to walk a short distance to the bathroom and quickly becomes very short of breath. Patient denies any orthopnea, fevers, chills, recent sick contacts, edema, chest pain, productive sputum or cough. Patient was noted to have an O2 saturation of 79% and currently improved on 2 L nasal cannula. Patient denies any tobacco use or history of valley fever. 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 Will admit patient for acute CHF exacerbation resulting in acute hypoxic respiratory failure as he is noted to have vascular congestion on chest x-ray. Will consult cardiology for further recommendations and start patient on IV Lasix. Will also test for valley fever. Will obtain echocardiogram. Patient states he had a stress test about 6 months ago and was unremarkable. Patient denies any family history of cardiac disease. Patient is noted to have elevated BP that appears to be uncontrolled. Will start patient on home antihypertensives. Will follow-up with cardiology recommendations as well. Will admit to telemetry for further workup medical management of acute CHF exacerbation.
[2024-03-17] MEDS: FUROSEMIDE INJ 10 MG/ML 4ML VIAL 40 MG IVP (17:53)
[2024-03-17] MEDS: VALSARTAN 80 MG TABLET 320 MG PO (18:30)
[2024-03-18] VITALS (15 sets, daily range): BP systolic 159–184; BP diastolic 83–110; PULSE 65–106; RESP 14–28; TEMP 36.7–37.4; O2SAT 92–97
[2024-03-18] MEDS: FUROSEMIDE INJ 10 MG/ML 4ML VIAL 40 MG IVP ×2 (05:16→17:55)
[2024-03-18 06:13] LABS: Basophils % (Auto) 0 % (0-2.5); Eosinophils % (Auto) 0 % (0-10); Hematocrit 38.8 % (41.0-53.0); Hemoglobin 12.5 g/dL (13.5-16.0); Immature Granulocytes % (Auto) 1 % (0-0); Immature Granulocytes Auto 0.08 Thou/mm3 (0.00-0.00); Lymphocytes # (Auto) 1.1 Thou/mm3 (1.0-4.8); Lymphocytes % (Auto) 10 % (10-50); Mean Corpuscular HGB Conc 32.2 g/dl (31.0-37.0); Mean Corpuscular Hemoglobin 26.4 pg (25.0-35.0); Mean Corpuscular Volume 82 fL (80-100); Monocytes # (Auto) 1.4 Thou/mm3 (0.0-0.8); Monocytes % (Auto) 11 % (0-12); Neutrophils # (Auto) 9.4 Thou/mm3 (1.8-7.7); Neutrophils % (Auto) 78 % (37-80); Nucleated Red Blood Cell % 0 /100 WBC (0); Platelet Count 233 Thou/mm3 (140-440); RDW Standard Deviation 45.5 fL (35.1-43.9); Red Blood Count 4.73 Miln/mm3 (4.50-5.90); White Blood Count 11.9 Thou/mm3 (3.8-10.6)
[2024-03-18 07:05] LABS: Alanine Aminotransferase 13 U/L (10-49); Albumin, Serum 4.5 gm/dL (3.4-4.8); Albumin/Globulin Ratio 1.7 (1.2-2.2); Alkaline Phosphatase 84 U/L (46-116); Anion Gap 7 (7-16); Aspartate Amino Transferase 14 U/L (0-34); BUN/Creatinine Ratio 21 Ratio (12-20); Blood Urea Nitrogen 21 mg/dL (9-23); Carbon Dioxide 32.3 mMol/L (20.0-31.0); Chloride 99 mMol/L (98-107); Estimated Creatinine Clearance 109.4 mL/min (>60); Globulin 2.6 gm/dL (2.3-3.5); Glucose 138 mg/dL (74-106); Magnesium 2.1 mg/dL (1.6-2.6); Osmolality,Calculated 280 (275-295); Phosphorous 5.2 mg/dL (2.4-5.1); Potassium 3.4 mMol/L (3.4-5.1); Sodium 138 mMol/L (136-145); Total Protein 7.1 gm/dL (5.7-8.2); eGFR > 60 See Note
--- NOTE | 2024-03-18 07:43 | ESPR_ITS ---
Documentation for date of: 03/18/24 Subjective Subjective Interval history: Patient was seen and examined at bedside this AM. No acute exents overnight. Patient tolerating diet, adequate urine output and mentation is at baseline. Patient endorses improvement of SOB and can now ambulate with supplemental O2 Patient on IV diuresis with Lasix 40 Mg IV twice daily Fluid balance of -1880 cc in the past 24 hours Creatinine up trended to 1 from 0.8 Repeat transthoracic echocardiogram completed today, pending read. Potassium 3.4 and magnesium 2.1. Recommend replete with KCl 60 mEq p.o. Maintain potassium greater than 4 and magnesium greater than 2 at all times to prevent any arrhythmia From telemetry review patient still in A-fib rates 100s?120s Recommend to increase Metoprolol XL to 100mg po BID Also still hypertensive this a.m. BP 159/89 trend of SBP's 150s?170s overnight. Patient started on valsartan 320 Mg p.o. daily today Exam Vital Signs Temp Pulse Resp BP Pulse Ox O2 Del Method O2 Flow Rate 98.6 F 98 20 159/89 H 95 Nasal Cannula 2 03/18/24 04:00 03/18/24 07:27 03/18/24 07:27 03/18/24 05:16 03/18/24 07:27 03/18/24 04:00 03/18/24 07:27 Narrative Exam Constitutional Alert, oriented x 3 and comfortable. ELderly Obese male on O2 via NC HEENT Vision grossly intact. Patent nares. Trachea midline Respiratory Chest normal on inspection , decreased AE b/l in all lung mcqueen and clear auscultation bilaterally Cardiovascular S1 and S2 audible,irregularly, irregular rate. No murmurs carotid bruit. JVD not assessed Abdominal Soft,obese and non tender to palpation in all quadrants. BS + Genitourinary No bladder tenderness, no flank pain. Normal to palpation. Scrotal edema - improved Musculoskeletal Extremities tone within normal limits. 1 + LE edema B/L, 1+ hip edema and sacral edema - improved Neurological CN II - XII grossly intact. Extremity motor and sensation grossly intact. Skin Warm, dry and intact. No apparent lesions. Psychiatric Patient has good affect, is cooperative Objective Labs 03/18/24 04:20 03/18/24 04:20 Labs: Laboratory Results - last 24 hr 03/17/24 03/17/24 03/18/24 07:06 07:42 04:20 WBC 11.4 H 11.9 H RBC 4.46 L 4.73 Hgb 11.9 L 12.5 L Hct 36.3 L 38.8 L MCV 81 82 MCH 26.7 26.4 MCHC 32.8 32.2 RDW Std Deviation 45.9 H 45.5 H Plt Count 211 233 Neut % (Auto) 66 78 Lymph % (Auto) 12 10 [place] % (Auto) 10 11 Eos % (Auto) 11 H 0 Baso % (Auto) 1 0 Neut # (Auto) 7.5 9.4 H Lymph # (Auto) 1.4 1.1 [place] # (Auto) 1.1 H 1.4 H Eos # (Auto) 1.2 H 0.0 Baso # (Auto) 0.1 0.0 Immature Gran # (Auto) 0.03 H 0.08 H Absolute Nucleated RBC 0.00 0.00 Immature Gran % 0 1 H Nucleated RBC % 0 0 D-Dimer < 250 Puncture Site Right Radial ABG pH 7.41 ABG pCO2 49 H ABG pO2 70 L ABG HCO3 31 H ABG O2 Saturation 95 ABG Base Excess 6 H Oxygen Liter Flow 1 Sodium 138 Potassium 3.4 D Chloride 99 Carbon Dioxide 32.3 H Anion Gap 7 BUN 21 Creatinine 1.0 Estim Creat Clear Calc 109.4 eGFR > 60 BUN/Creatinine Ratio 21 H Glucose 138 H Calculated Osmolality 280 Calcium 10.0 Corrected Calcium 10.0 Phosphorus 5.2 H Magnesium 2.1 Total Bilirubin 2.0 H AST 14 ALT 13 Alkaline Phosphatase 84 Total Protein 7.1 Albumin 4.5 Globulin 2.6 Albumin/Globulin Ratio 1.7 ABG Interpretation ABG results: 03/17/24 07:42 ABG pH 7.41 ABG pCO2 49 H ABG pO2 70 L ABG HCO3 31 H ABG O2 Saturation 95 ABG Base Excess 6 H Quality Measures Quality Measures none Advance care planning discussed with:: patient Assessment & Plan Assessment Current Active Medications: Generic Name Dose Route Start Last Admin Trade Name Freq PRN Reason Stop Dose Admin Acetaminophen 650 mg 03/17/24 11:18 Acetaminophen 325 Mg Tablet PO 04/16/24 11:17 Q6H PRN Fever >101.5 or pain 1-3 Albuterol/Ipratropium 3 ml 03/17/24 11:18 03/17/24 13:09 Albuterol/Ipratropium (Duoneb) Rt [place] 3 Ml Nebu INH 04/16/24 12:59 3 ml Q6HRRT PRN Administration shortness of breath Finasteride 5 mg 03/18/24 09:00 Finasteride 5 Mg Tablet PO 04/17/24 08:59 QDAY JIM Furosemide 40 mg 03/17/24 18:00 03/18/24 05:16 Furosemide Inj 10 Mg/Ml 4ml Vial IVP 04/16/24 17:59 40 mg BIDD JIM Administration Magnesium Hydroxide 30 ml 03/17/24 11:18 Milk Of Magnesia Susp 30 Ml Udc PO 04/16/24 11:17 QDAY PRN CONSTIPATION Protocol Home Medication- 150 mg 03/17/24 21:00 03/17/24 20:32 Please Speak With PO 04/16/24 20:59 Not Given Patient Caregiver To BID JIM Have Rx Brought To [facility] Ondansetron HCl 4 mg 03/17/24 11:18 Ondansetron Inj 2 Mg/Ml Inj 2 Ml IV 04/16/24 11:17 Q6H PRN NAUSEA OR VOMITING Protocol Oxycodone/Acetaminophen 1 tab 03/17/24 11:18 Oxycodone/Apap 5/325 Tablet PO 03/22/24 11:17 Q6H PRN PAIN SCALE 4-6 (Moderate Pantoprazole Sodium 40 mg 03/18/24 09:00 Pantoprazole Inj 40 Mg Vial IVP 04/17/24 08:59 QDAY JIM Valsartan 320 mg 03/18/24 09:00 Valsartan 80 Mg Tablet PO 04/17/24 08:59 QDAY JIM Plan Patient is a 68-year-old male with a past medical history significant for essential hypertension, longstanding A-fib anticoagulated on Pradaxa and rate controlled on metoprolol XL, vertigo, BPH, history of right hip and left knee replacement at [facility] and lumbosacral laminectomy. Follows up with resource coordinator Dr. Murphy in [place] and associate professor of radiology, Dr. Cifuentes. Presented to the ED today with a chief complaint of shortness of breath.The patient has been admitted for management of acute hypoxic respiratory failure secondary to CHF exacerbation. Cardiology was consulted. 1. Acute respiratory failure with hypoxia Secondary to 2. Acute decompensated chronic systolic heart failure exacerbation [EF 45-50%] 3. Dilated cardiomyopathy On admission patient was severely SOB and saturating 89% on room air, subsequently was placed on supplemental O2 via NC and saturations improved to 94%. On exam patient's lungs were clear to auscultation, however had significant lower extremity edema. BNP on admission was 184 less than his previous value of 346 in 2018. Troponin was also negative. EKG showed atrial fibrillation, rate [address] changes or Q waves. Chest x-ray showed bilateral vascular congestion and pulmonary edema bilaterally worse in the right lower lobe. Patient's home diuretic HCTZ 12.5 Mg p.o. daily NYHA Stage C Class IV Last transthoracic echocardiogram completed on 12/01/[address] Goss findings include: A complete two-dimensional, color flow and Doppler transthoracic echocardiogram is performed. Dilated cardiomyopathy ejection fraction is 45- 50%. Mild mitral and tricuspid regurgitation Moderate LVH. Patient endorses improvement of SOB and can now ambulate with supplemental O2 Patient on IV diuresis with Lasix 40 Mg IV twice daily Fluid balance of -1880 cc in the past 24 hours Repeat transthoracic echocardiogram completed today, pending read. Creatinine up trended to 1 from 0.8 Potassium 3.4 and magnesium 2.1. Recommend replete with KCl 60 mEq p.o. Maintain potassium greater than 4 and magnesium greater than 2 at all times to prevent any arrhythmia HbA1c [03/18/2024] 5.8% Plan: ? Strict input output charting ? Fluid restrict 1500 cc/day ? Daily weights ? 2 g sodium restricted diet ? Continue diuresis with furosemide 40 Mg IV twice daily - Recommend to replete with KCL 60 meq po ? Transthoracic echocardiogram completed, pending read ? Last lipid panel on file from 2018, recommend to repeat 4. Longstanding A-fib?rate controlled Patient has history of A-fib for many years rate controlled on metoprolol XL 100 mg p.o. daily and anticoagulated on Pradaxa 150 Mg p.o. twice daily. EKG on admission showed atrial fibrillation with a rate of [address] changes or Q waves. [id number]: 3 points; 3.2% stroke risk per year HAS-BLED: 2 points; moderate risk for major bleeding Both patient and his extensively counseled and advised by Dr. eBlla about switching from Pradaxa to Eliquis due to lower risk of bleeding. Both patient and agree. From telemetry review patient still in A-fib rates 100s?120s Plan: ? Patient currently not rate controlled, recomend increase metoprolol XL to 100mg po BID as tolerated for better rate control ? Continue anticoagulation with Eliquis 5 Mg p.o. twice daily ? Maintain potassium greater than 4 and magnesium greater than 2 at all times to prevent any further arrhythmias 5. Essential hypertension ?uncontrolled Patient has hypertension for many years and his home medications quinapril 40 Mg p.o. daily, amlodipine 10 Mg p.o. daily, clonidine 0.4 Mg p.o. daily. SBP's at home range from 150s?160s Also still hypertensive this a.m. BP 159/89 trend of SBP's 150s?170s overnight. Patient started on valsartan 320 Mg p.o. daily today Plan: ? Ideally patient should be on ROCKY/ARB or Entresto along with beta-tushar and spironolactone as part of GDMT. ? Continue Valsartan 320mg po Qday 6. Normocytic anemia On admission patient's Hb 11.9, uncertain of baseline as last documented labs from 2018. DDx: Anemia of chronic disease, iron deficiency, poor nutrition, gastric ulcer Recommend iron panel and complete anemia workup 7. BPH Patient's home medication tamsulosin 0.4 Mg p.o. daily and finasteride 5 Mg p.o. daily. Continue management as per primary team 8. Likely CLEM 9. Morbid obesity class III Patient's BMI 40.7 kg/m2 and patient's also reports that he snores. Recommend sleep study as outpatient to further evaluate Patient counselled on weight loss and exercise. Continue rest of management as per primary team. We are grateful to be able to participate in Mr. Ruth's care. Thank you for the consult Plan of care discussed with attending Scrap Piler, Dr Shayne Jaquez MD PGY 1 Attending Provider Attestation/Addendum I have personally seen and examined the patient separately on the above date of service and discussed the plan of care with the resident. I reviewed the resident Dr. Jaquez consultation progress note and agree with the resident findings and plan in the note above and have also edited the documentation to reflect my findings and plan. John Goss Anumandla M.D. Interventional Cardiology
[2024-03-18 09:14] LABS: Thyroid Stimulating Hormone 2.29 uIU/mL (0.55-4.78)
[2024-03-18 09:25] LABS: Glucose Estimated Average 120 mg/dL (80-131); Hemoglobin A1C 5.8 % Hgb (4.8-6.0)
[2024-03-18] MEDS: POTASSIUM CHLORIDE 20 mEq TABCR 40 MEQ PO (09:26)
[2024-03-18] MEDS: VALSARTAN 80 MG TABLET 320 MG PO (09:27)
[2024-03-18] MEDS: METOPROLOL SUCCINATE XL 25 MG TABCR 100 MG PO ×2 (09:28→20:36)
[2024-03-18] MEDS: PANTOPRAZOLE INJ 40 MG VIAL IVP (09:29)
[2024-03-18] MEDS: FINASTERIDE 5 MG TABLET PO (09:29)
[2024-03-18] MEDS: TAMSULOSIN HCL 0.4 MG CAPSULE PO (09:29)
[2024-03-18] MEDS: APIXABAN 2.5 MG TABLET 5 MG PO ×2 (09:29→20:36)
--- NOTE | 2024-03-18 10:00 | ESOP_ITS ---
Procedure Direct current cardioversion for uncontrolled atrial flutter Moderate Conscious Sedation with Versed and Fentanyl Pre Op Diagnosis Paroxysmal atrial fibrillation and stroke Indication Paroxysmal atrial fibrillation Post Op Diagnosis Normal sinus rhythm restored Procedure Description Patient was in paroxysmal atrial fibrillation but ventricular rate was c ontrolled for the past couple of days and presented with a stroke d Electrolytes were also replaced appropriately.? Decision was made to perform cardioversion for the patient after performing it transesophageal echocardiogram as patient had a stroke and to rule out any LA and LA thrombus. Transesophageal echocardiogram was completed today and did not show any significant LA or KAREL thrombus.? Please see KIERSTEN report from today for rest of the findings.? Patient was already on anticoagulation with heparin drip. Patient was taken to the [facility] for the KIERSTEN and cardioversion, both anterior and posterior pads were placed.? Patient was given moderate sedation and received a total of 5 mg and 125 mcg of fentanyl for both the KIERSTEN and as well as the cardioversion. Patient was given additional 1 mg of Versed and 25 mcg of fentanyl just before the cardioversion and the rest during the KIERSTEN. A single synchronized 100 J shock was given and the patient converted successfully into normal sinus rhythm.? No complications during or after the procedure.? Patient is doing well.? His heart rate was stable between 60 to 70 bpm and appears to be normal sinus rhythm on the telemetry.? Recommend to perform an EKG to document normal sinus rhythm postprocedure.? Patient will be monitored in the [facility] for the next 1-2 hours and then be transferred to the regular nursing floor.? Will adjust his medications for atrial fibrillation/fultter prior to discharge. Estimated Blood Loss 0 Specimen(s) Specimen(s): None Conclusion Successful direct current cardioversion of paroxysmal atrial fibrillation to Normal Sinus Rhythm. Recommendation Increase metoprolol XL to 100 mg once daily as the blood pressure is stable. Continue Eliquis 5 mg BID for anticaogulation. EKG to document NSR post procedure. Surgical Staff Surgeon: John Bella MD
--- NOTE | 2024-03-18 13:54 | PC.PT ---
PT eval only, Pt is currently at par with PLOF, IND on all functional mobility including transfers and AMB without use of AD. No further PT services needed. RN notified.
--- NOTE | 2024-03-18 15:54 | ESPR_ITS ---
<Statement entered by Dmitri Cabezas DO - 03/18/24 18:54> Senior attestation: Patient was examined and case was reviewed with team including attending physician. Note reviewed, I agree with most of its contents and agree with the patient's care. Pending TTE, site auditor Dr. Bella following, will continue diuresis today with IV bumex. Fluid balance this morning was ~ -1.8L, will continue diuresing. Home health physical therapy to be pursued once patient has been discharged. Dmitri Cabezas DO PGY-3 Documentation for date of: 03/18/24 Subjective Subjective Interval history: Patient seen at bedside. No acute overnight events. Today, patient reports significant improvement, no longer has shortness of breath and is able to walk more than he has been able to in a while. I&O: 345/1850 (-1505). The patient was on IV Lasix 40 twice daily. Labs and vitals reviewed, some contraction alkalosis noted. Blood pressure slightly elevated at 159, patient is on valsartan 320 mg daily. Currently saturating 96% on 2L of oxygen. Echocardiogram pending read. Appreciate cardiology recommendations. Will continue diuresing while monitoring renal function and replete electrolytes as necessary. Patient still in A-fib, rate controlled on metoprolol increased to 100 mg twice daily by cardiology. Exam Vital Signs Temp Pulse Resp BP Pulse Ox O2 Del Method O2 Flow Rate 98.4 F 91 16 167/101 H 95 Nasal Cannula 3 03/18/24 12:00 03/18/24 12:00 03/18/24 12:00 03/18/24 12:00 03/18/24 12:00 03/18/24 08:00 03/18/24 08:00 Narrative Exam GENERAL: AAOX3 NEURO: EXECUTIVE SECRETARY grossly intact, moves extremities x4 HEENT: Moist mucosa. Eyes open, symmetrical, & clear CARDIO: No chest pain on palpation. Normal rate, irregular rhythm, no obvious murmurs PULM: No noted coughing/dyspnea. Crackles bilaterally GI: Abdomen soft, nondistended, no pain on palpation. BSx4 URO/INTERNET SECURITY SPECIALIST:: No further abnormalities noted. SKIN/MSK/EXT: Bilateral pitting edema 2+ Objective Labs 03/19/24 05:00 03/19/24 05:00 Labs: Laboratory Results - last 24 hr 03/18/24 04:20 WBC 11.9 H RBC 4.73 Hgb 12.5 L Hct 38.8 L MCV 82 MCH 26.4 MCHC 32.2 RDW Std Deviation 45.5 H Plt Count 233 Neut % (Auto) 78 Lymph % (Auto) 10 [place] % (Auto) 11 Eos % (Auto) 0 Baso % (Auto) 0 Neut # (Auto) 9.4 H Lymph # (Auto) 1.1 [place] # (Auto) 1.4 H Eos # (Auto) 0.0 Baso # (Auto) 0.0 Immature Gran # (Auto) 0.08 H Absolute Nucleated RBC 0.00 Immature Gran % 1 H Nucleated RBC % 0 Sodium 138 Potassium 3.4 D Chloride 99 Carbon Dioxide 32.3 H Anion Gap 7 BUN 21 Creatinine 1.0 Estim Creat Clear Calc 109.4 eGFR > 60 BUN/Creatinine Ratio 21 H Glucose [address] Glu mg/dL 120 Hemoglobin A1c 5.8 Calculated Osmolality 280 Calcium 10.0 Corrected Calcium 10.0 Phosphorus 5.2 H Magnesium 2.1 Total Bilirubin 2.0 H AST 14 ALT 13 Alkaline Phosphatase 84 Total Protein 7.1 Albumin 4.5 Globulin 2.6 Albumin/Globulin Ratio 1.7 TSH 2.29 ABG Interpretation ABG results: 03/17/24 07:42 ABG pH 7.41 ABG pCO2 49 H ABG pO2 70 L ABG HCO3 31 H ABG O2 Saturation 95 ABG Base Excess 6 H Quality Measures Quality Measures none Advance care planning discussed with:: patient and spouse Assessment & Plan Assessment Current Active Medications: Generic Name Dose Route Start Last Admin Trade Name Sourav PRN Reason Stop Dose Admin Acetaminophen 650 mg 03/17/24 11:18 Acetaminophen 325 Mg Tablet PO 04/16/24 11:17 Q6H PRN Fever >101.5 or pain 1-3 Albuterol/Ipratropium 3 ml 03/17/24 11:18 03/17/24 13:09 Albuterol/Ipratropium (Duoneb) Rt [place] 3 Ml Nebu INH 04/16/24 12:59 3 ml Q6HRRT PRN Administration shortness of breath Apixaban 5 mg 03/18/24 09:00 03/18/24 09:29 Apixaban 2.5 Mg Tablet PO 04/17/24 08:59 5 mg BID JIM Administration Finasteride 5 mg 03/18/24 09:00 03/18/24 09:29 Finasteride 5 Mg Tablet PO 04/17/24 08:59 5 mg QDAY JIM Administration Furosemide 40 mg 03/17/24 18:00 03/18/24 05:16 Furosemide Inj 10 Mg/Ml 4ml Vial IVP 04/16/24 17:59 40 mg BIDD JIM Administration Magnesium Hydroxide 30 ml 03/17/24 11:18 Milk Of Magnesia Susp 30 Ml Udc PO 04/16/24 11:17 QDAY PRN CONSTIPATION Protocol Metoprolol Succinate 100 mg 03/18/24 21:00 Metoprolol Succinate Xl 25 Mg Tabcr PO 04/17/24 20:59 BID JIM Ondansetron HCl 4 mg 03/17/24 11:18 Ondansetron Inj 2 Mg/Ml Inj 2 Ml IV 04/16/24 11:17 Q6H PRN NAUSEA OR VOMITING Protocol Oxycodone/Acetaminophen 1 tab 03/17/24 11:18 Oxycodone/Apap 5/325 Tablet PO 03/22/24 11:17 Q6H PRN PAIN SCALE 4-6 (Moderate Pantoprazole Sodium 40 mg 03/18/24 09:00 03/18/24 09:29 Pantoprazole Inj 40 Mg Vial IVP 04/17/24 08:59 40 mg QDAY JIM Administration Tamsulosin HCl 0.4 mg 03/18/24 09:00 03/18/24 09:29 Tamsulosin Hcl 0.4 Mg Capsule PO 04/17/24 08:59 0.4 mg QDAY JIM Administration Valsartan 320 mg 03/18/24 09:00 03/18/24 09:27 Valsartan 80 Mg Tablet PO 04/17/24 08:59 320 mg QDAY JIM Administration Plan Summary: The patient is a 68-year-old male with a past medical history of hypertension and A-fib on Pradaxa presents to the ED on 03/17/2020 for complaints of shortness of breath. The patient was admitted for management of acute hypoxic respiratory failure secondary to CHF exacerbation. #Acute hypoxic respiratory failure #Acute decompensated heart disease #Hx of HFrEF The patient presented with several months of dyspnea, as well as exertional dyspnea and orthopnea. He is unable to pinpoint when exactly his symptoms started but noted that he had progressively worsened. At home, possibly associated start to be at 79% which prompted the ER visit. Chest x-ray showed pulmonary vascular congestion with perihilar basilar edema consistent with mild to moderate CHF. Last echocardiogram on file is done in 2018 and showed dilated cardiomyopathy and ejection fraction of 40 to 45%. BNP admission- 184 03/18/2024- Today, patient reports significant improvement, no longer has shortness of breath and is able to walk more than he has been able to in a while. I&O: 345/1850 (-1505). The patient was on IV Lasix 40 twice daily. Labs and vitals reviewed, some contraction alkalosis noted. Blood pressure slightly elevated at 159, patient is on valsartan 320 mg daily. Currently saturating 96% on 2L of oxygen. Echocardiogram pending read. Appreciate cardiology recommendations. Plan: -CT IV Lasix 40 mg twice daily -Pending echocardiogram read -Fluid restriction -Strict I&O's -Daily weights -Cardiology consulted, appreciate recommendations #History of hypertension The patient is on valsartan 320 mg daily, HCTZ 12.5 mg and amlodipine 10 mg. -Restarted valsartan 320mg daily #History of A-fib The patient has a history of A-fib and is on metoprolol 100 mg daily, and is on pradaxa EKG on admission showed the patient to be in A-fib, rate controlled. -CHADVASC: 2 03/18/2024- Patient started on Eliquis 5mg BID, DC Pradaxa Plan: -Eliquis 5mg BID -Metoprolol XL 100mg BID -Cardiology consulted, appreciate recommendations #History of BPH The patient per med rec is on finasteride 5 mg daily -Restart home medication Health maintenance: Dispo: Tele Diet: Cardiac GI: Pantoprazole DVT: Pradaxa Vivar: None Lines: Peripheral Med Rec: Completed PT: Completed, recommends home health Code: Full Case was discussed with senior resident Dr Cabezas and attending physician, Dr Lilliana Torres MD PGY-1 Attending Provider Attestation/Addendum I have discussed and was present for the essential components of the history, physical examination, diagnosis, and treatment plan with the resident. I agree with the patient's care as documented by the resident and amended herein by me. Patrick Tijerina DO. Although this document has been carefully reviewed, there may still be some phonetic and other typographical errors. These errors are purely grammatical due to imperfections in the software program and should not be construed in any way to compromise the substance of the patient's medical care during this visit.
[2024-03-18] MEDS: hydrALAZINE HCL 10 MG TABLET PO ×2 (17:49→22:27)
--- NOTE | 2024-03-18 18:32 | PC.CM ---
Entered pt. on [facility]. Need to send HH referral.
--- NOTE | 2024-03-18 19:51 | ESCONSULT_ITS ---
HPI Data of Consult Requesting Physician: Nancy Arevalo DO Primary Care Provider: Antwan Cifuentes MD Consult Narrative Reason for consult: Shortness of breath History of present illness: 68 years old male sent to the ER after the patient called me for shortness of breath And I asked him to check his O2 saturation as he has a O2 monitor at home it was 86 to 87% on room air I called the emergency room physician and alerted them CTA chest was negative for PE Chest x-ray was consistent with congestive heart failure EKG showed atrial fibrillation with a rate controlled at 79 bpm Patient was subsequently admitted BNP was 186 Patient has hypertensive heart disease chronic atrial fibrillation on Pradaxa cc:: cc: Nancy Arevalo DO Review of Systems Review of Systems Narrative Review of Systems: No chest pain no palpitations Past Medical History Surgical History OTHER SURGICAL HX: As in the history of present illness Meds Home Medications and Allergies Home Medications ?Medication ?Instructions ?Recorded ?Confirmed ?Type amlodipine 10 mg tablet 10 mg PO DAILY 11/27/17 03/17/24 History clonidine HCl 0.1 mg tablet 0.1 mg PO TID 11/27/17 03/17/24 History dabigatran etexilate 150 mg 150 mg PO BID 11/27/17 03/17/24 History capsule (Pradaxa) hydrochlorothiazide 12.5 mg tablet 12.5 mg PO QAM 11/27/17 03/17/24 History meloxicam 15 mg tablet 15 mg PO DAILY 11/27/17 03/17/24 History metoprolol succinate 100 mg 100 mg PO DAILY 11/27/17 03/17/24 History tablet,extended release 24 hr pantoprazole 40 mg tablet,delayed 40 mg PO DAILY 11/27/17 03/17/24 History release potassium chloride 10 mEq 20 meq PO DAILY UD 11/27/17 03/17/24 History tablet,extended release finasteride 5 mg tablet 1 tab PO QDAY 10/22/21 03/17/24 History tamsulosin 0.4 mg capsule 1 cap PO DAILY 10/22/21 03/17/24 History quinapril 40 mg tablet 40 mg PO DAILY 03/17/24 03/17/24 History Allergies Allergy/AdvReac Type Severity Reaction Status Date / Time No Known Allergies Allergy Verified 03/17/24 06:17 Exam Vital Signs Temp Pulse Resp BP Pulse Ox O2 Del Method O2 Flow Rate 98.0 F 87 21 H 173/109 H 95 Nasal Cannula 1 03/18/24 16:00 03/18/24 17:55 03/18/24 16:00 03/18/24 17:55 03/18/24 16:00 03/18/24 16:00 03/18/24 16:00 Constitutional Comments: Alert oriented feeling better after IV Lasix Routine HEENT Exam Comments: Within normal limits Routine Respiratory Exam Comments: Basal crepitations rales or rhonchi Routine Abdominal Exam Comments: Soft nontender Results Labs 03/18/24 04:20 03/18/24 04:20 Labs: Short CBC 03/18/24 Range/Units 04:20 WBC 11.9 H (3.8-10.6) Thou/mm3 Hgb 12.5 L (13.5-16.0) g/dL Hct 38.8 L (41.0-53.0) % Plt Count 233 (140-440) Thou/mm3 BMP 03/18/24 04:20 Sodium 138 Potassium 3.4 D Chloride 99 Carbon Dioxide 32.3 H BUN 21 Creatinine 1.0 Glucose 138 H Calcium 10.0 Liver Function 03/18/24 Range/Units 04:20 Total Bilirubin 2.0 H (0.3-1.2) mg/dL AST 14 (0-34) U/L ALT 13 (10-49) U/L Alkaline Phosphatase 84 (46-116) U/L Albumin 4.5 (3.4-4.8) gm/dL ABG Interpretation ABG results: 03/17/24 07:42 ABG pH 7.41 ABG pCO2 49 H ABG pO2 70 L ABG HCO3 31 H ABG O2 Saturation 95 ABG Base Excess 6 H Assessment and Plan Additional Assessment & Plan Additional Plan: # Acute congestive heart failure # Chronic atrial fibrillation rate controlled # Hypertensive heart disease # Hypoxemia secondary to congestive heart failure # Morbidly obese Plan IV Lasix 2 g sodium diet Echocardiogram Dr. Gertrude June is on the case We will follow his recommendations His senior service technician in [place] is Dr. Murphy I have already let him know that
--- NOTE | 2024-03-18 22:30 | PC.NURSE ---
Addendum entered by Jesika Pryor RN 03/19/24 00:13: MD Hernandez notified again at approximately 0011 that pt's BP is still elevated at 183/110 and HR 77 after being given hydralazine PRN. Pt is still asymptomatic. will put in new orders Original Note: MD Hernandez notified that pt's BP is still elevated after metoprolol. Pt's BP is 183/110 and pt is asymptomatic. MD Hernandez said we can give the PRN Hydralazine early. Will continue to monitor patient's BP
[2024-03-19] VITALS (13 sets, daily range): BP systolic 161–183; BP diastolic 103–115; PULSE 68–94; RESP 14–142; TEMP 36.3–36.7; O2SAT 91–97; BMI 45.6
[2024-03-19] MEDS: cloNIDine HCL 0.1 MG TABLET PO (00:19)
--- NOTE | 2024-03-19 03:20 | PC.NURSE ---
Patient kept desatting to 80s when in deep sleep. He is now on 5L NC and O2 Saturation is 96% while he is asleep
[2024-03-19] MEDS: FUROSEMIDE INJ 10 MG/ML 4ML VIAL 40 MG IVP (05:10)
[2024-03-19] MEDS: hydrALAZINE HCL 10 MG TABLET PO (05:11)
--- NOTE | 2024-03-19 05:20 | PD.RESHP ---
Documentation for date of: 03/19/24 Exam Vital Signs Temp Pulse Resp BP Pulse Ox O2 Del Method O2 Flow Rate 97.8 F 68 14 175/115 H 96 Nasal Cannula 5 03/19/24 00:00 03/19/24 05:11 03/19/24 00:00 03/19/24 05:11 03/19/24 03:00 03/19/24 03:00 03/19/24 03:00 Results: Labs 03/18/24 04:20 03/18/24 04:20 Labs: Short CBC 03/18/24 Range/Units 04:20 WBC 11.9 H (3.8-10.6) Thou/mm3 Hgb 12.5 L (13.5-16.0) g/dL Hct 38.8 L (41.0-53.0) % Plt Count 233 (140-440) Thou/mm3 BMP 03/18/24 04:20 Sodium 138 Potassium 3.4 D Chloride 99 Carbon Dioxide 32.3 H BUN 21 Creatinine 1.0 Glucose 138 H Calcium 10.0 Liver Function 03/18/24 Range/Units 04:20 Total Bilirubin 2.0 H (0.3-1.2) mg/dL AST 14 (0-34) U/L ALT 13 (10-49) U/L Alkaline Phosphatase 84 (46-116) U/L Albumin 4.5 (3.4-4.8) gm/dL ABG Interpretation ABG results: 03/17/24 07:42 ABG pH 7.41 ABG pCO2 49 H ABG pO2 70 L ABG HCO3 31 H ABG O2 Saturation 95 ABG Base Excess 6 H Quality Measures Quality Measures none Medications Home Medications and Allergies Home Medications ?Medication ?Instructions ?Recorded ?Confirmed ?Type amlodipine 10 mg tablet 10 mg PO DAILY 11/27/17 03/17/24 History clonidine HCl 0.1 mg tablet 0.1 mg PO BID 11/27/17 03/18/24 History dabigatran etexilate 150 mg 150 mg PO BID 11/27/17 03/17/24 History capsule (Pradaxa) hydrochlorothiazide 12.5 mg tablet 12.5 mg PO QAM 11/27/17 03/17/24 History meloxicam 15 mg tablet 15 mg PO DAILY 11/27/17 03/17/24 History metoprolol succinate 100 mg 100 mg PO DAILY 11/27/17 03/17/24 History tablet,extended release 24 hr pantoprazole 40 mg tablet,delayed 40 mg PO DAILY 11/27/17 03/17/24 History release potassium chloride 10 mEq 20 meq PO BID 11/27/17 03/18/24 History tablet,extended release finasteride 5 mg tablet 1 tab PO QDAY 10/22/21 03/17/24 History tamsulosin 0.4 mg capsule 1 cap PO DAILY 10/22/21 03/17/24 History quinapril 40 mg tablet 40 mg PO DAILY 03/17/24 03/17/24 History Allergies Allergy/AdvReac Type Severity Reaction Status Date / Time No Known Allergies Allergy Verified 03/17/24 06:17 Visit Medications Acetaminophen (Acetaminophen 325 Mg Tablet) 650 mg PO Q6H PRN PRN Reason: Fever >101.5 or pain 1-3 Stop: 04/16/24 11:17 Albuterol/Ipratropium (Albuterol/Ipratropium (Duoneb) Rt [place] 3 Ml Nebu) 3 ml INH Q6HRRT PRN PRN Reason: shortness of breath Stop: 04/16/24 12:59 Last Admin: 03/17/24 13:09 Dose: 3 ml Amlodipine Besylate (Amlodipine Besylate 5 Mg Tablet) 10 mg PO QDAY [facility] Stop: 04/18/24 08:59 Apixaban (Apixaban 2.5 Mg Tablet) 5 mg PO BID [facility] Stop: 04/17/24 08:59 Last Admin: 03/18/24 20:36 Dose: 5 mg Clonidine (Clonidine Hcl 0.1 Mg Tablet) 0.1 mg PO BID [facility] Stop: 04/18/24 00:14 Last Admin: 03/19/24 00:19 Dose: 0.1 mg Finasteride (Finasteride 5 Mg Tablet) 5 mg PO QDAY [facility] Stop: 04/17/24 08:59 Last Admin: 03/18/24 09:29 Dose: 5 mg Furosemide (Furosemide Inj 10 Mg/Ml 4ml Vial) 40 mg IVP BIDD [facility] Stop: 04/16/24 17:59 Last Admin: 03/19/24 05:10 Dose: 40 mg Hydralazine HCl (Hydralazine Hcl 10 Mg Tablet) 10 mg PO Q6HR PRN PRN Reason: SBP>160 Stop: 04/17/24 16:55 Last Admin: 03/19/24 05:11 Dose: 10 mg Magnesium Hydroxide (Milk Of Magnesia Susp 30 Ml Udc) 30 ml PO QDAY PRN; Protocol PRN Reason: CONSTIPATION Stop: 04/16/24 11:17 Metoprolol Succinate (Metoprolol Succinate Xl 25 Mg Tabcr) 100 mg PO BID JIM Stop: 04/17/24 20:59 Last Admin: 03/18/24 20:36 Dose: 100 mg Ondansetron HCl (Ondansetron Inj 2 Mg/Ml Inj 2 Ml) 4 mg IV Q6H PRN; Protocol PRN Reason: NAUSEA OR VOMITING Stop: 04/16/24 11:17 Oxycodone/Acetaminophen (Oxycodone/Apap 5/325 Tablet) 1 tab PO Q6H PRN PRN Reason: PAIN SCALE 4-6 (Moderate Stop: 03/22/24 11:17 Pantoprazole Sodium (Pantoprazole Inj 40 Mg Vial) 40 mg IVP QDAY [facility] Stop: 04/17/24 08:59 Last Admin: 03/18/24 09:29 Dose: 40 mg Tamsulosin HCl (Tamsulosin Hcl 0.4 Mg Capsule) 0.4 mg PO QDAY [facility] Stop: 04/17/24 08:59 Last Admin: 03/18/24 09:29 Dose: 0.4 mg Valsartan (Valsartan 80 Mg Tablet) 320 mg PO QDAY [facility] Stop: 04/17/24 08:59 Last Admin: 03/18/24 09:27 Dose: 320 mg Discontinued Medications Albuterol/Ipratropium (Albuterol/Ipratropium (Duoneb) Rt [place] 3 Ml Nebu) 3 ml INH X1 ONE Stop: 03/17/24 06:51 Last Admin: 03/17/24 07:31 Dose: 3 ml Furosemide (Furosemide Inj 10 Mg/Ml 4ml Vial) 20 mg IVP X1 ONE Stop: 03/17/24 07:21 Last Admin: 03/17/24 07:33 Dose: 20 mg Magnesium Sulfate (Magnesium Sulfate Ivpb) 2 gm in 50 mls @ 25 mls/hr IV X1 ONE Stop: 03/17/24 09:53 Last Infusion: 03/17/24 20:44 Dose: Infused Magnesium Sulfate (Magnesium Sulfate Ivpb) 4 gm in 50 mls @ 12.5 mls/hr IV X1 ONE Stop: 03/17/24 15:27 Last Infusion: 03/17/24 20:45 Dose: Infused Methylprednisolone Sodium Succinate (Methylprednisolone Sod Succ 62.5 Mg/Ml 2ml Vial) 125 mg IVP X1 ONE Stop: 03/17/24 06:51 Last Admin: 03/17/24 07:20 Dose: 125 mg Metoprolol Succinate (Metoprolol Succinate Xl 25 Mg Tabcr) 100 mg PO QDAY JIM Stop: 04/17/24 08:59 Last Admin: 03/18/24 09:28 Dose: 100 mg Morphine Sulfate (Morphine Sulf Inj 10 Mg/Ml Vial) 2 mg IVP X1 ONE Stop: 03/17/24 07:21 Last Admin: 03/17/24 07:33 Dose: 2 mg Nitroglycerin (Nitroglycerin Oint 2% 1 Inch Packet) 1 inch TOP X1 ONE Stop: 03/17/24 07:21 Last Admin: 03/17/24 07:33 Dose: 1 inch Home Medication- Please Speak With Patient Caregiver To Have Rx Brought To [facility] 150 mg PO BID JIM Stop: 04/16/24 20:59 Last Admin: 03/17/24 20:32 Dose: Not Given Potassium Chloride (Potassium Chloride 20 Meq Tabcr) 40 meq PO X1 ONE Stop: 03/17/24 11:28 Last Admin: 03/17/24 11:55 Dose: 40 meq Potassium Chloride (Potassium Chloride 20 Meq Tabcr) 40 meq PO X1 ONE Stop: 03/18/24 07:58 Last Admin: 03/18/24 09:26 Dose: 40 meq Valsartan (Valsartan 80 Mg Tablet) 320 mg PO X1 ONE Stop: 03/17/24 16:47 Last Admin: 03/17/24 18:30 Dose: 320 mg
[2024-03-19 06:09] LABS: Basophils # (Auto) 0.1 Thou/mm3 (0.0-0.2); Basophils % (Auto) 1 % (0-2.5); Eosinophils # (Auto) 0.6 Thou/mm3 (0.0-0.5); Eosinophils % (Auto) 4 % (0-10); Hematocrit 40.1 % (41.0-53.0); Hemoglobin 12.8 g/dL (13.5-16.0); Immature Granulocytes % (Auto) 1 % (0-0); Immature Granulocytes Auto 0.07 Thou/mm3 (0.00-0.00); Lymphocytes # (Auto) 3.7 Thou/mm3 (1.0-4.8); Lymphocytes % (Auto) 25 % (10-50); Mean Corpuscular HGB Conc 31.9 g/dl (31.0-37.0); Mean Corpuscular Hemoglobin 26.4 pg (25.0-35.0); Mean Corpuscular Volume 83 fL (80-100); Monocytes # (Auto) 1.7 Thou/mm3 (0.0-0.8); Monocytes % (Auto) 12 % (0-12); Neutrophils # (Auto) 8.6 Thou/mm3 (1.8-7.7); Neutrophils % (Auto) 58 % (37-80); Nucleated Red Blood Cell % 0 /100 WBC (0); Platelet Count 244 Thou/mm3 (140-440); RDW Standard Deviation 47.4 fL (35.1-43.9); Red Blood Count 4.84 Miln/mm3 (4.50-5.90); White Blood Count 14.8 Thou/mm3 (3.8-10.6)
[2024-03-19 07:20] LABS: Alanine Aminotransferase 17 U/L (10-49); Albumin, Serum 4.2 gm/dL (3.4-4.8); Albumin/Globulin Ratio 1.7 (1.2-2.2); Alkaline Phosphatase 73 U/L (46-116); Anion Gap 8 (7-16); Aspartate Amino Transferase 23 U/L (0-34); BUN/Creatinine Ratio 23 Ratio (12-20); Blood Urea Nitrogen 21 mg/dL (9-23); Calcium 9.8 mg/dL (8.3-10.6); Calcium (Corrected) 9.8 mg/dL (8.5-10.1); Carbon Dioxide 28.5 mMol/L (20.0-31.0); Chloride 102 mMol/L (98-107); Creatinine (Component) 0.9 mg/dL (0.6-1.3); Estimated Creatinine Clearance 121.1 mL/min (>60); Globulin 2.5 gm/dL (2.3-3.5); Glucose 100 mg/dL (74-106); Osmolality,Calculated 278 (275-295); Potassium 3.6 mMol/L (3.4-5.1); Sodium 138 mMol/L (136-145); Total Protein 6.7 gm/dL (5.7-8.2); eGFR > 60 See Note
[2024-03-19] MEDS: amLODIPine BESYLATE 5 MG TABLET 10 MG PO (08:17)
[2024-03-19] MEDS: PANTOPRAZOLE INJ 40 MG VIAL IVP (08:17)
[2024-03-19] MEDS: POTASSIUM CHLORIDE 20 mEq TABCR 40 MEQ PO (08:19)
[2024-03-19] MEDS: FINASTERIDE 5 MG TABLET PO (08:19)
[2024-03-19] MEDS: METOPROLOL SUCCINATE XL 25 MG TABCR 100 MG PO (08:19)
[2024-03-19] MEDS: APIXABAN 2.5 MG TABLET 5 MG PO (08:20)
[2024-03-19] MEDS: TAMSULOSIN HCL 0.4 MG CAPSULE PO (08:20)
[2024-03-19] MEDS: VALSARTAN 80 MG TABLET 320 MG PO (08:20)
--- NOTE | 2024-03-19 08:21 | PD.RESPRO ---
Documentation for date of: 03/19/24 Subjective Subjective Interval history: Patient was seen and examined at bedside this AM. No acute exents overnight. Patient tolerating diet, adequate urine output and mentation is at baseline. Patient endorses improvement of SOB and can now ambulate on RA Patient on IV diuresis with Lasix 40 Mg IV twice daily Fluid balance of -810 cc in the past 24 hours Creatinine decreased to 0.9 from 1 Potassium 3.6 and magnesium 2.1. Recommend replete with KCl 40 mEq p.o. Maintain potassium greater than 4 and magnesium greater than 2 at all times to prevent any arrhythmia From telemetry review patient still in A-fib rates 80-100s Recommend to continue Metoprolol XL 100mg po BID Also still hypertensive this a.m. BP 175/115 trend of SBP's 150s?170s overnight. Continue valsartan 320 Mg p.o. daily today and Clonidine 0.1mg po BID Transthoracic echocardiogram completed on 03/17 findings include: Normal LV size and function. Mild LVH. Cannot determine diatolic function due to AFib. Estimated EF 55- 60% Mild RV dilation. Normal RV function. Severe biatrial dilation. IVC dilated. Mild MR. Trace TR. Exam Vital Signs Temp Pulse Resp BP Pulse Ox O2 Del Method O2 Flow Rate 97.4 F 94 25 H 166/108 H 96 Nasal Cannula 5 03/19/24 04:00 03/19/24 08:20 03/19/24 06:51 03/19/24 08:20 03/19/24 06:51 03/19/24 04:00 03/19/24 06:51 Narrative Exam Constitutional Alert, oriented x 3 and comfortable. ELderly Obese male on RA HEENT Vision grossly intact. Patent nares. Trachea midline Respiratory Chest normal on inspection , and clear auscultation bilaterally Cardiovascular S1 and S2 audible,irregularly, irregular rate. No murmurs carotid bruit. JVD not assessed Abdominal Soft,obese and non tender to palpation in all quadrants. BS + Genitourinary No bladder tenderness, no flank pain. Normal to palpation. Scrotal edema - improved Musculoskeletal Extremities tone within normal limits. Trace LE and Sacral edema - improved Neurological CN II - XII grossly intact. Extremity motor and sensation grossly intact. Skin Warm, dry and intact. No apparent lesions. Psychiatric Patient has good affect, is cooperative Objective Labs 03/19/24 05:00 03/19/24 05:00 Labs: Laboratory Results - last 24 hr 03/18/24 03/19/24 04:20 05:00 WBC 14.8 H RBC 4.84 Hgb 12.8 L Hct 40.1 L MCV 83 MCH 26.4 MCHC 31.9 RDW Std Deviation 47.4 H Plt Count 244 Neut % (Auto) 58 Lymph % (Auto) 25 Weber % (Auto) 12 Eos % (Auto) 4 Baso % (Auto) 1 Neut # (Auto) 8.6 H Lymph # (Auto) 3.7 Weber # (Auto) 1.7 H Eos # (Auto) 0.6 H Baso # (Auto) 0.1 Immature Gran # (Auto) 0.07 H Absolute Nucleated RBC 0.00 Immature Gran % 1 H Nucleated RBC % 0 Sodium 138 Potassium 3.6 Chloride 102 Carbon Dioxide 28.5 Anion Gap 8 BUN 21 Creatinine 0.9 Estim Creat Clear Calc 121.1 eGFR > 60 BUN/Creatinine Ratio 23 H Glucose [address] Glu mg/dL 120 Hemoglobin A1c 5.8 Calculated Osmolality 278 Calcium 9.8 Corrected Calcium 9.8 AST 23 ALT 17 Alkaline Phosphatase 73 Total Protein 6.7 Albumin 4.2 Globulin 2.5 Albumin/Globulin Ratio 1.7 TSH 2.29 ABG Interpretation ABG results: 03/17/24 07:42 ABG pH 7.41 ABG pCO2 49 H ABG pO2 70 L ABG HCO3 31 H ABG O2 Saturation 95 ABG Base Excess 6 H Quality Measures Quality Measures none Advance care planning discussed with:: patient Assessment & Plan Assessment Current Active Medications: Generic Name Dose Route Start Last Admin Trade Name Sourav PRN Reason Stop Dose Admin Acetaminophen 650 mg 03/17/24 11:18 Acetaminophen 325 Mg Tablet PO 04/16/24 11:17 Q6H PRN Fever >101.5 or pain 1-3 Albuterol/Ipratropium 3 ml 03/17/24 11:18 03/17/24 13:09 Albuterol/Ipratropium (Duoneb) Rt [place] 3 Ml Nebu INH 04/16/24 12:59 3 ml Q6HRRT PRN Administration shortness of breath Amlodipine Besylate 10 mg 03/19/24 09:00 03/19/24 08:17 Amlodipine Besylate 5 Mg Tablet PO 04/18/24 08:59 10 mg QDAY JIM Administration Apixaban 5 mg 03/18/24 09:00 03/19/24 08:20 Apixaban 2.5 Mg Tablet PO 04/17/24 08:59 5 mg BID JIM Administration Clonidine 0.1 mg 03/19/24 00:15 03/19/24 00:19 Clonidine Hcl 0.1 Mg Tablet PO 04/18/24 00:14 0.1 mg BID JIM Administration Finasteride 5 mg 03/18/24 09:00 03/19/24 08:19 Finasteride 5 Mg Tablet PO 04/17/24 08:59 5 mg QDAY JIM Administration Hydralazine HCl 10 mg 03/18/24 16:56 03/19/24 05:11 Hydralazine Hcl 10 Mg Tablet PO 04/17/24 16:55 10 mg Q6HR PRN Administration SBP>160 Magnesium Hydroxide 30 ml 03/17/24 11:18 Milk Of Magnesia Susp 30 Ml Udc PO 04/16/24 11:17 QDAY PRN CONSTIPATION Protocol Metoprolol Succinate 100 mg 03/18/24 21:00 03/19/24 08:19 Metoprolol Succinate Xl 25 Mg Tabcr PO 04/17/24 20:59 100 mg BID JIM Administration Ondansetron HCl 4 mg 03/17/24 11:18 Ondansetron Inj 2 Mg/Ml Inj 2 Ml IV 04/16/24 11:17 Q6H PRN NAUSEA OR VOMITING Protocol Oxycodone/Acetaminophen 1 tab 03/17/24 11:18 Oxycodone/Apap 5/325 Tablet PO 03/22/24 11:17 Q6H PRN PAIN SCALE 4-6 (Moderate Pantoprazole Sodium 40 mg 03/18/24 09:00 03/19/24 08:17 Pantoprazole Inj 40 Mg Vial IVP 04/17/24 08:59 40 mg QDAY JIM Administration Tamsulosin HCl 0.4 mg 03/18/24 09:00 03/19/24 08:20 Tamsulosin Hcl 0.4 Mg Capsule PO 04/17/24 08:59 0.4 mg QDAY JIM Administration Valsartan 320 mg 03/18/24 09:00 03/19/24 08:20 Valsartan 80 Mg Tablet PO 04/17/24 08:59 320 mg QDAY JIM Administration Plan Patient is a 68-year-old male with a past medical history significant for essential hypertension, longstanding A-fib anticoagulated on Pradaxa and rate controlled on metoprolol XL, vertigo, BPH, history of right hip and left knee replacement at [facility] and lumbosacral laminectomy. Follows up with garbage pick up man Dr. Murphy in [place] and superintendent terminal, Dr. Cifuentes. Presented to the ED today with a chief complaint of shortness of breath.The patient has been admitted for management of acute hypoxic respiratory failure secondary to CHF exacerbation. Cardiology was consulted. 1. Acute respiratory failure with hypoxia - resolved Secondary to 2. Acute decompensated chronic diastolic heart failure exacerbation [EF 55-60%] 3. Dilated cardiomyopathy On admission patient was severely SOB and saturating 89% on room air, subsequently was placed on supplemental O2 via NC and saturations improved to 94%. On exam patient's lungs were clear to auscultation, however had significant lower extremity edema. BNP on admission was 184 less than his previous value of 346 in 2018. Troponin was also negative. EKG showed atrial fibrillation, rate [address] changes or Q waves. Chest x-ray showed bilateral vascular congestion and pulmonary edema bilaterally worse in the right lower lobe. Patient's home diuretic HCTZ 12.5 Mg p.o. daily NYHA Stage C Class IV Last transthoracic echocardiogram completed on 12/01/[address] Goss findings include: A complete two-dimensional, color flow and Doppler transthoracic echocardiogram is performed. Dilated cardiomyopathy ejection fraction is 45- 50%. Mild mitral and tricuspid regurgitation Moderate LVH. Transthoracic echocardiogram completed on 03/17 findings include: Normal LV size and function. Mild LVH. Cannot determine diatolic function due to AFib. Estimated EF 55- 60% Mild RV dilation. Normal RV function. Severe biatrial dilation. IVC dilated. Mild MR. Trace TR. Patient endorses improvement of SOB and can now ambulate on RA Patient on IV diuresis with Lasix 40 Mg IV twice daily Fluid balance of -810 cc in the past 24 hours Creatinine decreased to 0.9 from 1 Potassium 3.6 and magnesium 2.1. Recommend replete with KCl 40 mEq p.o. Maintain potassium greater than 4 and magnesium greater than 2 at all times to prevent any arrhythmia HbA1c [03/18/2024] 5.8% Plan: ? Strict input output charting ? Fluid restrict 1500 cc/day ? Daily weights ? 2 g sodium restricted diet - Upon discharge can transition patient to Lasix 40mg po daily - Patient has appointment with Dr. Murphy, Small Package And Bundle Sorter Clerk on Friday 4. Longstanding A-fib?rate controlled Patient has history of A-fib for many years rate controlled on metoprolol XL 100 mg p.o. daily and anticoagulated on Pradaxa 150 Mg p.o. twice daily. EKG on admission showed atrial fibrillation with a rate of [address] changes or Q waves. [id number]: 3 points; 3.2% stroke risk per year HAS-BLED: 2 points; moderate risk for major bleeding Both patient and his extensively counseled and advised by Dr. Bella about switching from Pradaxa to Eliquis due to lower risk of bleeding. Both patient and agree. From telemetry review patient still in A-fib rates 80-100s Recommend to continue Metoprolol XL 100mg po BID Plan: ? Recommend to continue metoprolol XL 100mg po BID as tolerated for better rate control ? Continue anticoagulation with Eliquis 5 Mg p.o. twice daily ? Maintain potassium greater than 4 and magnesium greater than 2 at all times to prevent any further arrhythmias 5. Essential hypertension ?uncontrolled Patient has hypertension for many years and his home medications quinapril 40 Mg p.o. daily, amlodipine 10 Mg p.o. daily, clonidine 0.4 Mg p.o. daily. SBP's at home range from 150s?160s Also still hypertensive this a.m. BP 175/115 trend of SBP's 150s?170s overnight. Continue valsartan 320 Mg p.o. daily today and Clonidine 0.1mg po BID Plan: ? Ideally patient should be on ROCKY/ARB or Entresto along with beta-tushar and spironolactone as part of GDMT. ? Continue Valsartan 320mg po Qday and Clonidine patient's home medication 6. Normocytic anemia On admission patient's Hb 11.9, uncertain of baseline as last documented labs from 2018. DDx: Anemia of chronic disease, iron deficiency, poor nutrition, gastric ulcer Recommend iron panel and complete anemia workup 7. BPH Patient's home medication tamsulosin 0.4 Mg p.o. daily and finasteride 5 Mg p.o. daily. Continue management as per primary team 8. Likely CLEM 9. Morbid obesity class III Patient's BMI 40.7 kg/m2 and patient's also reports that he snores. Recommend sleep study as outpatient to further evaluate Patient counselled on weight loss and exercise. Continue rest of management as per primary team. We are grateful to be able to participate in Mr. Ruth's care. Thank you for the consult Plan of care discussed with attending Shank Maker, Dr Shayne Jaquez MD PGY 1 Attending Provider Attestation/Addendum I reviewed the resident Dr. Jaquez consultation progress note and agree with the resident findings and plan in the note above and have also edited the documentation to reflect my findings and plan. John Bella M.D. Interventional Cardiology
--- NOTE | 2024-03-19 10:51 | ESDS_ITS ---
<Statement entered by Dmitri Cabezas DO - 03/19/24 21:24> Senior attestation: Patient was examined and case was reviewed with team including attending physician. Note reviewed, I agree with most of its contents and agree with the patient's care. Dmitri Cabezas DO PGY-3 Planned Discharge Date 03/19/24 DS: Providers Provider Date of admission: 03/17/24 11:14 Primary care physician: Antwan Cifuentes MD Admitting Provider: Nancy Arevalo DO Attending Provider on Admission: Nancy Arevalo DO Consults: 03/17/24 11:29 Referral Physical Therapy Routine Comment: Physician Instructions: 03/17/24 11:49 Consult to Cardiology Routine Comment: Consulting Provider: John Bella Attending Provider on DC: Kishan Tijerina DO Discharging Provider: Kishan Tijerina DO DS: Diagnosis Problem List Completed Was Problem List Reviewed/Reconciled?: Yes Hospital Course Hospital Course Hospital course: The patient is a 68year old male with a past medical history of hypertension, CHF, BPH, Afib (On Pradaxa) who presented to the ED on 03/17/2024 with complaints of shortness of breath that started about a year ago but has progressively worsened over the past couple weeks until the point of being unable to catch his breath and being hypoxic by pulse oximeter. He also endorsed bilateral pitting edema and some orthopnea, but denied PND. On admission to the ER, the patient was hypoxic, saturating in the 80s and placed on oxygen via nasal cannula. Chest X-ray showed prominent vascular congestion with perihilar basal edema, consistent with CHF. EKG showed atrial fibrillation, rate controlled with a HR of 79. Labs were unremarkable except for a BNP of 184. The patient was admitted for acute hypoxic respiratory failure secondary to CHF exacerbation and started on IV Lasix 40mg for diuresis. Echocardiogram was ordered and cardiology was consulted. Echo revealed EF of 55- 60% and the patient had continuous diuresis and blood pressure control. Cocci serology was also ordered and returned negative. For A-fib, after extensive conversation with patient and , pradaxa was discontinued and the patient was started on Eliquis 5mg daily. Today, the patient is clinically and hemodynamically stable, medically cleared for discharge. Blood pressure control has been optimized with valsartan, hydrochlorothiazide, clonidine and amlodipine. He is recommended to follow up with his PCP within one week of discharge as well as metal ceiling hanger Dr Murphy. #Acute hypoxic respiratory failure #Acute decompensated heart disease #Hx of HFrEF #Hx of hypertension #Hx of AFib #Hx of BPH Case was discussed with senior resident Dr Cabezas and attending physician, Dr Lilliana Torres MD PGY-1 Status at Discharge Functional status at discharge: independent ambulation Overall status at discharge: patient is progressing back to baseline Time Spent with Patient Time attestation: Total time spent providing and/or coordinating discharge services:more than 30minutes Home Health Home Health Referral Orders: 03/18/24 17:22 Home Health Referral Routine Reason For Exam: debility Home-Bound The patient must either because of illness or injury, need the aid of supportive devices such as crutches, canes, wheelchairs, and walkers; the use of special transportation; or the assistance of another person in order to leave their place of residence; OR have a condition such that leaving his or her home is medically contraindicated. In addition, the patient also meets the following criteria: patient is normally unable to leave the home and leaving home requires considerable taxing effort. Addendum to Home Health Certification Practitioner's Certification: I certify that the patient has been under my care in the hospital and the care of attending physician (see below). We had a [id number] encounter on (see date below). My clinical findings indicate that the patient is home bound per the above criteria and the Home Health Services noted in these orders are medically necessary. The primary reason for the [id number] encounter is related to the fact that the patient requires home health services. Date Certifying [id number] Physician Encounter: 03/17/24 Physician's Name who will Assume Oversight for Services: Antwan Cifuentes Physician's Phone No.who will Assume Oversight for Service: [facility] - Community Resources: No PT to Evaluate: Yes PT to evaluate and provide a treatmnet plan to increase patient's mobility and strength. Wound Care: No IV Therapy: No Discontinue PICC Line Once Treatment Complete: No RN Safety Evaluation: Yes RN to evaluate and create a plan of care that will produce positive outcomes. Palliative Treatment: No Palliative treatment and evaluate the need for hospice. Home Health Aide - Personal Care: No Home Health Aide to assist with any ADL's. Exam Vital Signs Temp Pulse Resp BP Pulse Ox O2 Del Method O2 Flow Rate 98.1 F 86 20 161/112 H 96 Room Air 3 03/19/24 10:37 03/19/24 10:37 03/19/24 10:37 03/19/24 10:37 03/19/24 10:37 03/19/24 10:37 03/19/24 08:00 Narrative Exam GENERAL: AAOX3 NEURO: FABRIC WORKER FITTER grossly intact, moves extremities x4 HEENT: Moist mucosa. Eyes open, symmetrical, & clear CARDIO: No chest pain on palpation. Normal rate, irregular rhythm, no obvious murmurs PULM: No noted coughing/dyspnea. Crackles bilaterally- resolving GI: Abdomen soft, nondistended, no pain on palpation. BSx4 URO/CORNETIST:: No further abnormalities noted. SKIN/MSK/EXT: Bilateral pitting edema 1+ Discharge Plan Plan Patient Disposition: HOME (Self Care) Care Plan Goals: Follow up with your PCP within one week of discharge Follow up with Culled Fruit Packer Dr Murphy as scheduled Limit your salt and water intake Continue the diuretic lasix, take 40mg daily Your blood thinner has been changed from Pradaxa to Eliquis 5mg daily. STOP taking Pradaxa Continue all other medications as prescribed, including valsartan Prescriptions/Referrals Prescriptions/Med Rec: New furosemide [Lasix] 40 mg tablet 40 mg PO QDAY 28 Days Qty: 28 0RF Eliquis 5 mg tablet 5 mg PO BID 14 Days Qty: 28 0RF Continued finasteride 5 mg tablet 1 tab PO QDAY tamsulosin 0.4 mg capsule 1 cap PO DAILY clonidine HCl 0.1 mg Tablet 0.1 mg PO BID meloxicam 15 mg Tablet 15 mg PO DAILY metoprolol succinate 100 mg Tablet Extended Release 24 Hr 100 mg PO DAILY potassium chloride 10 mEq Tablet Extended Release 20 meq PO BID amlodipine 10 mg Tablet 10 mg PO DAILY pantoprazole 40 mg Tablet,Delayed Release (Dr/Ec) 40 mg PO DAILY hydrochlorothiazide 12.5 mg Tablet 12.5 mg PO QAM Discontinued dabigatran etexilate [Pradaxa] 150 mg Capsule 150 mg PO BID quinapril 40 mg Tablet 40 mg PO DAILY Referrals: Antwan Cifuentes MD [Primary Care Provider] - Patient/Caregiver Discharge Instructions Discharge Activity: as per physical therapy Education Materials: Heart Failure Print Language: Armenian Stand Alone Forms: Christine Award Info., Patient Portal Info Letter Discharge Order Discharge Orders: Discharge (Routine); Ordered 03/19/24 Ordered By: Chuck Torres Quality Discharge Quality Measures VTE prophylaxis MD Attestestation MD Attestation I have discussed and was present for the essential components of the discharge history, physical examination, diagnosis, and discharge treatment plan with the resident. I agree with the patient's discharge care as documented by the resident and amended herein by me. Patrick Tijerina DO. The patient understood all discharge instructions, all questions were answered satisfactorily. The patient was instructed to return to the Emergency Department is symptoms worsened or persisted. Patient was stable, afebrile, tolerating p.o. intake and ambulatory time discharge. Although this document has been carefully reviewed, there may still be some phonetic and other typographical errors. These errors are purely grammatical due to imperfections in the software program and should not be construed in any way to compromise the substance of the patient's medical care during this visit.
[2024-03-19 13:43] LABS: Cocci Serology, IgM Negative (Negative)
[2024-03-19 14:50] LABS: Bilirubin,Total 1.7 mg/dL (0.3-1.2); Cardiac Risk Estimate 2.4 RATIO (4.0-6.7); Cholesterol 156 mg/dL (132-200); HDL Cholesterol 65 mg/dL (40-60); LDL Cholesterol,Calculated 72 mg/dL (0-130); Triglycerides 94 mg/dL (30-150)
--- NOTE | 2024-03-19 21:40 | ESPR_ITS ---
Documentation for date of: 03/19/24 Subjective Subjective Interval history: Late entry for the note Case discussed with internal medicine team Okay to be discharged to be followed by his credit collection specialist in [place] early next week I will see him back in the office in 2 weeks Exam Vital Signs Temp Pulse Resp BP Pulse Ox O2 Del Method O2 Flow Rate 98.1 F 86 20 161/112 H 96 Room Air 3 03/19/24 10:37 03/19/24 10:37 03/19/24 10:37 03/19/24 10:37 03/19/24 10:37 03/19/24 10:37 03/19/24 08:00 Objective Labs 03/19/24 05:00 03/19/24 05:00 Labs: Laboratory Results - last 24 hr 03/18/24 03/19/24 16:06 05:00 WBC 14.8 H RBC 4.84 Hgb 12.8 L Hct 40.1 L MCV 83 MCH 26.4 MCHC 31.9 RDW Std Deviation 47.4 H Plt Count 244 Neut % (Auto) 58 Lymph % (Auto) 25 Scott % (Auto) 12 Eos % (Auto) 4 Baso % (Auto) 1 Neut # (Auto) 8.6 H Lymph # (Auto) 3.7 Scott # (Auto) 1.7 H Eos # (Auto) 0.6 H Baso # (Auto) 0.1 Immature Gran # (Auto) 0.07 H Absolute Nucleated RBC 0.00 Immature Gran % 1 H Nucleated RBC % 0 Sodium 138 Potassium 3.6 Chloride 102 Carbon Dioxide 28.5 Anion Gap 8 BUN 21 Creatinine 0.9 Estim Creat Clear Calc 121.1 eGFR > 60 BUN/Creatinine Ratio 23 H Glucose 100 Calculated Osmolality 278 Calcium 9.8 Corrected Calcium 9.8 Magnesium 2.0 Total Bilirubin 1.7 H AST 23 ALT 17 Alkaline Phosphatase 73 Total Protein 6.7 Albumin 4.2 Globulin 2.5 Albumin/Globulin Ratio 1.7 Triglycerides 94 Cholesterol 156 LDL Cholesterol, Calc 72 HDL Cholesterol 65 H Cholesterol/HDL Ratio 2.4 L Coccidioides IgM Ab Negative Impressions Impression: # Congestive heart failure # Chronic atrial fibrillation Okay to discharge patient home to be followed as an outpatient ABG Interpretation ABG results: 03/17/24 07:42 ABG pH 7.41 ABG pCO2 49 H ABG pO2 70 L ABG HCO3 31 H ABG O2 Saturation 95 ABG Base Excess 6 H Assessment & Plan A&P Narrative # Acute congestive heart failure # Chronic atrial fibrillation rate controlled # Hypertensive heart disease # Hypoxemia secondary to congestive heart failure # Morbidly obese Plan IV Lasix 2 g sodium diet Echocardiogram Dr. Gertrude June is on the case We will follow his recommendations His credit collection specialist in [place] is Dr. Murphy I have already let him know that Time Spent With Patient Time: Total time spent is greater than 50% in coordination of care (as documented) at patient's floor/unit and/or counseling patient:
--- NOTE | 2024-03-20 08:48 | PC.CM ---
HH referrals sent through [employer], awaiting responses.
[2024-03-20 12:03] LABS: Cocci Serology, IgG Negative (Negative)
--- NOTE | 2024-03-22 10:25 | PC.CM ---
Addendum entered by Mitzi Villegas RN 03/22/24 13:17: Roger will open patient tomorrow 03/23. Original Note: I sent orders to Roger. Pending start of care date.
== END 2024-03-19 10:30 | disposition home health service (06) | DRG 291 ==
LOC: SERX 09:15 → SERHOLD 11:52 → S2NX 19:15
PROVIDERS: Nurse Practitioner Primary Care; Student in an Organized Health Care Education/Training Program; Admitting Provider Internal Medicine; Emergency Provider Emergency Medicine; PCP Specialist; Visit Provider Student in an Organized Health Care Education/Training Program
DX: I11.0 Hypertensive heart disease with heart failure (principal); I50.23 Acute on chronic systolic (congestive) heart failure; J96.01 Acute respiratory failure with hypoxia; E87.3 Alkalosis; Z68.41 Body mass index [BMI] 40.0-44.9, adult; N40.1 Benign prostatic hyperplasia with lower urinary tract symptoms; I42.0 Dilated cardiomyopathy; E66.01 Morbid (severe) obesity due to excess calories; D64.9 Anemia, unspecified; I48.0 Paroxysmal atrial fibrillation; I08.1 Rheumatic disorders of both mitral and tricuspid valves; Z96.652 Presence of left artificial knee joint; Z79.899 Other long term (current) drug therapy
CPT/HCPCS: 36415; 36600; 71046; 71275; 80053; 80061; 82803; 83036; 83735; 83880; 84100; 84443; 84484; 85025; 85379; 85610; 85730; 86331; 86635; 87400; 87811; 93005; 93306; 94640; 96374; 96375; 96376; 97161; 99285; A4649; A9270; J1940; J2270; J2470; J2919; J3475; Q9967